=== PATIENT | female | born 1990 | race Caucasian/White ===

== ENCOUNTER 2022-12-17 14:30 | Outpatient (CLI) | payer BC, MEDICAID, SELFPAY | END 2022-12-17 14:31 | disposition home or self-care (01) | PROVIDERS: Visit Provider Nurse Practitioner Family | DX: R10.13 Epigastric pain (principal); M79.89 Other specified soft tissue disorders; R20.2 Paresthesia of skin | CPT/HCPCS: 80053; 82150; 82607; 83690; 84443; 85025 ==

== ENCOUNTER 2023-09-30 12:45 | Outpatient (CLI) | payer BC, SELFPAY ==
--- NOTE | 2023-09-30 13:00 | US_ITS ---
Patient: VU Lino [facility] Facility:?[facility] RIS Patient ID:?[id number] Site Patient ID:?[id number]. Site :?1990 Study:?US-OB Pelvis OB TV-09/30/2023 1:35:44 PM Ordering Physician:?KIMMIE THACKER CNP Final Report: OBSTETRICAL ULTRASOUND INDICATION: Ultrasound for dates and viability. LMP: 08/01/2023. NIRMALA by LMP: 05/07/2024. Gestational age: 8w 4d. Previous US: No. TECHNIQUE: Transvaginal pelvic ultrasound. FINDINGS: CRL: 1.0 cm, 7 weeks 1 day. NIRMALA: 05/17/2024. heart rate: 127 bpm. Gestational sac: 1.8 cm appears within normal limits. Yolk sac: 3.2 mm appears within normal limits. Right ovary: Within normal limits; 3.1 x 1.7 x 2.0 cm. Left ovary: Within normal limits; 3.8 x 2.6 x 2.3 cm IMPRESSION: 1. Single viable intrauterine . 2. Measurements are 10 days behind clinical dates. Fer Last M.D. Body/Diagnostic Radiologist [employer] [facility] [email or web address] MEGHAN/molina D& Transcribed: 4:47 p.m. SP/Dictated by: Fer Last MD @ 10/01/2023 3:27:00 PM Signed by:?Fer Last MD @10/02/2023 4:05:45 PM (Electronic Signature)
== END 2023-09-30 12:46 | disposition home or self-care (01) ==
LOC: US 12:46
PROVIDERS: PCP Nurse Practitioner Family; Visit Provider Registered Nurse
DX: Z34.91 Encounter for supervision of normal pregnancy, unspecified, first trimester (principal); Z3A.01 Less than 8 weeks gestation of pregnancy
CPT/HCPCS: 76817; 82565; 82570; 84156; 84450; 84460; 84520; 84550; 86703; 86706; 86803; 86850; 86900; 86901; 87086; 87340; 87491; 87591

== ENCOUNTER 2023-09-30 14:09 | Outpatient (CLI) | payer BC, SELFPAY ==
[2023-09-30 21:47] LABS: Chlamydia DNA Amplified* NOT DETECTED (No Detected); GC DNA Amplified* NOT DETECTED (No Detected)
== END 2023-09-30 14:10 | disposition home or self-care (01) ==
PROVIDERS: PCP Nurse Practitioner Family; Visit Provider Registered Nurse
DX: Z34.81 Encounter for supervision of other normal pregnancy, first trimester (principal)
CPT/HCPCS: 82565; 82570; 84156; 84450; 84460; 84520; 84550; 86592; 86703; 86704; 86706; 86762; 86787; 86803; 86850; 86900; 86901; 87086; 87340; 87491; 87591

== ENCOUNTER 2023-12-01 13:30 | Outpatient (CLI) | payer BC, SELFPAY | END 2023-12-01 13:31 | disposition home or self-care (01) | LOC: NFLDREF 12-03 05:43 | PROVIDERS: PCP Nurse Practitioner Family; Referring Provider Nurse Practitioner Family; Visit Provider Nurse Practitioner Family | DX: L65.9 Nonscarring hair loss, unspecified (principal) | CPT/HCPCS: 84443 ==

== ENCOUNTER 2023-12-08 07:43 | Outpatient (CLI) | payer BC, SELFPAY ==
--- OUTSIDE RECORDS SUMMARY | 2023-12-10 00:08 | XMS_ITS | Continuity of Care Document ---
Author Organization [facility] Address [address] [address] [place] [address] Phone Care Team Providers Care Supervisor Extruding Department Name Role Phone Justin Mcnally MD Unavailable Unavailable Procedures Procedure Date Init Inpt Cons New/est Mod-hi 2 Ugi Endo; Dx W/wo Collec Specm Subsqt Hosp-da E&m Minr Compl 2 Ugi Endo; W/endo Ultrasound Ex Ercp; W/endo Retro Remov Stone Ercp; W/sphincterotomy/papillo Advance Directives Directive Yes / No Effective Date File Name No Information Encounters Encounter Description Practice Location Reason(s) For Visit Diagnoses Date Provider Providers Copied on Encounter [facility], [address] [address], [place], [place], [id number], [place] tel:[phone] [facility] No Information 2 Dali Anderson. [address], [id number] , [place]. tel:[phone] Init Inpt Cons New/est Mod-hi [facility], [address] [address], [place], [place], [id number], [place] tel:[phone] [facility] No Information 2 Dali Anderson. [address] [facility], [address], [id number] , [place]. tel:[phone] Referring Provider: Kelsey Hargrove [facility], [address] [place] [address], [address]. tel:[phone] Subsqt Hosp- E&m Minr Compl [facility] [place], [address] [address], [place], [place], [id number], [place] [phone] [facility] No Information 2 Drake Villareal. [address] [facility], [facility] [address], [place], [place], [id number] , [place]. tel:[phone] Referring Provider: Dionna Juan NP P, [address] [facility] [address], [place], [address] . tel:[phone] [facility], [address] [address], [place], [place], [id number], [place] tel:[phone] [facility] No Information 2 Dali Anderson. [address] [facility], [facility] [address], [place], [place], [id number] , [place]. tel:[phone] Referring Provider: Hellen Pappas MD, [address] [facility] [address], [place], [address]. tel:[phone] Family History Family Member Type Diagnosis Age At Onset No Information Payers Payer name Insurance type Covered libertarian ID Authoriza tion(s) No Information Social History Type Description Quantity Date Captured Comments Sex Female Smoking Status No Information Chief Complaint And Reason For Visit No Information Reason For Referral Reason For Referral No Information History Of Present Illness Encounter Date Complaint History Of Prese nt Illness No Information Functional Status Date Functional Assessmen t No Information Instructions Date Instruction Additional Infor mation No Information Assessments Type Assessment Date No Information Patient Care Teams Name Effective Dates (start - stop) Status Members No Information
== END 2023-12-08 07:44 | disposition home or self-care (01) ==
LOC: NFLDREF 12-10 00:06
PROVIDERS: PCP Nurse Practitioner Family; Referring Provider Nurse Practitioner Family; Visit Provider Obstetrics & Gynecology
DX: O24.429 Gestational diabetes mellitus in childbirth, unspecified control (principal)
CPT/HCPCS: 82570; 82951; 82952; 84156

== ENCOUNTER 2024-01-15 13:49 | Outpatient (CLI) | payer BC, SELFPAY ==
--- NOTE | 2024-01-15 14:00 | CRLHL7_ITS ---
For Patients: As a result of the Century Cures Act, medical imaging exams and procedure reports are released immediately into your electronic medical record. You may view this report before your referring provider. If you have questions, please contact your health care provider. INDICATION: follow up level 2 missed anatomy COMPARISON: 09/30/2023 TECHNIQUE: Real time hammer scale imaging of the fetus was performed as well as color Doppler analysis of the umbilical vessels. FINDINGS: Sonographic imaging demonstrates a single living intrauterine gestation. Fetus demonstrates a regular cardiac rate of 147 beats per minute. Fetus has a vertex position. The placenta lies anteriorly without evidence of placenta previa. Placental edge 3.7 cm from the internal cervical os. Amniotic fluid volume appears normal. Single deepest vertical pocket: 4.3 cm. The cervix is closed and measures 3.4 cm in length. The composite ultrasound gestational age is calculated at 22 weeks 5 days with an estimated sonographic due date of 05/15/2024. The estimated weight is 559 grams which lies at the 75th %. The following biometric measurements were obtained: Biparietal diameter: 5.1 cm/21 weeks 2 days 10th% Head circumference: 20.3 cm/22 weeks 3 days 35th% Abdominal circumference: 18.6 cm/23 weeks 3 days 73rd% Femur length: 4.0 cm/23 weeks 0 days 60th% The HC/AC ratio measures: 1.09 range (1.05-1.22) Incomplete visualization of the aortic arch, tongue and palate. Normal stomach, cord insertion, urinary bladder, kidneys, diaphragm, profile, four-chamber heart and outflow tracts. Normal cerebellum, cisterna magna, nuchal fold, lateral ventricles, CSP, spine and choroid plexus. IMPRESSION: Normal missed anatomy although there is incomplete visualization of the arch, tongue and palate. Sonographic gestational age 22 weeks 5 days and sonographic due date of 05/15/2024. Good correlation with dates. Estimated weight 75th percentile. Abdominal circumference 73rd percentile. Dictated by Quentin Price MD @ 01/16/2024 12:19:45 PM (Electronically Signed)
== END 2024-01-15 13:50 | disposition home or self-care (01) ==
LOC: US 13:49
PROVIDERS: PCP Nurse Practitioner Family; Visit Provider Advanced Practice Midwife
DX: Z34.92 Encounter for supervision of normal pregnancy, unspecified, second trimester (principal); O35.AXX0 Maternal care for other (suspected) fetal abnormality and damage, fetal facial anomalies, not applicable or unspecified; Z3A.22 22 weeks gestation of pregnancy
CPT/HCPCS: 76816

== ENCOUNTER 2024-02-27 12:06 | Outpatient (CLI) | payer BC, SELFPAY ==
--- OUTSIDE RECORDS SUMMARY | 2024-02-27 12:09 | XMS_ITS | Encounter Summary ---
Author Organization [facility] Address [address] [place] [address] Care Team Providers Care Contact Center Team Lead Name Role Phone Unavailable Primary Care Provider Unavailabl e Reason for Visit * Reason Onset Date Comments MFM Triage 12/11/2023 Encounter Details Date Type Department Care Team (Late st Contact Info) Description 12/11/2023 Clinical Communication Department of Obstetrics and Gynecology in [place], [place] [address] [place] [address] Prescheduling, Provider MFM Triage Social History Tobacco Use Types Packs/Day Years Used Date Smoking Tobacco: Never Assessed [facility] Utilities Answer Date Recorded In the past 12 months has th e electric, gas, oil, or water company threatened to shut off services in your home? No 12/18/2023 Exercise Vital Sign Answer Date Recorde d On average, how many days pe r week do you engage in moderate to strenuous exercise (like a brisk walk)? 4 days 12/18/2023 On average, how many minutes do you engage in exercise at this level? 30 min 12/18/2023 Hunger Vital Sign Answer Date Recorded Within the past 12 months, y ou worried that your food would run out before you got the money to buy more. Never true 12/18/19 24 Within the past 12 months, t he food you bought just didn't last and you didn't have money to get more. Never true 12/18/2023 PRAPARE - Transportation Answer Date Re corded In the past 12 months, has l ack of transportation kept you from medical appointments or from getting medications? No 05/2023 In the past 12 months, has l ack of transportation kept you from meetings, work, or from getting things needed for daily living? No 12/18/2023 Nutrition Answer Date Recorded On average, how many serving s of fruits and vegetables do you eat per day (serving size is equal to 1 cup or approximately the size of a tennis ball)? 0-2 12/18/2023 Dental Answer Date Recorded Dental: Regular Dentist Yes 12/18/19 Employment Answer Date Recorded Employment status Employed and actively working without restrictions 12/18/2023 Housing Stability Answer Date Recorded What is your living situation today? I have a [facility] place to live 12/18/2023 Sex and Gender Information Value Date Recorded Sex Assigned at Female 12/18/2023 9:03 AM CDT Gender Identity Female 12/18/2023 9:03 AM CDT Sexual Orientation Straight 12/18/2023 9: 03 AM CDT documented as of this encounter Plan of Treatment Not on file documented as of this encounter Visit Diagnoses Not on filedocumented in this encounter
--- OUTSIDE RECORDS SUMMARY | 2024-02-27 12:09 | XMS_ITS | Encounter Summary ---
Author Organization [facility] Address [address] [place] [address] Care Team Providers Care Hand Stripper Name Role Phone Unavailable Primary Care Provider Unavailabl e Encounter Details Date Type Department Care Team (Late st Contact Info) Description 12/15/2023 Orders Only Department of Obstetrics and Gynecology in [place], [place] [address] [place] [address] Florinda Ewing, REmilyNEmily [address] [place] [address] Diabetes Mellitus Gestational (HCC) (Primary Dx); Hypertension Personal History Social History Tobacco Use Types Packs/Day Years Used Date Smoking Tobacco: Every Day Cigarettes 0.5 10.8 Started: 2013 Smokeless Tobacco: Never Alcohol Use Standard Drinks/Week Comments Not Currently 0 (1 standard drink = 0.6 oz pur e alcohol) [facility] Utilities Answer Date Recorded In the past 12 months has [facility] [employer], gas, oil, or water [employer] threatened to shut off services in your [...] your living situation today? I have a [facility] place to live 12/18/2023 Estimated Date of Delivery Comme nts Yes 05/17/2024 Based on Ultraso und Sex and Gender Information Value Date Recorded Sex Assigned at Female 12/18/2023 9:03 AM CDT Gender Identity Female 12/18/2023 9:03 AM CDT Sexual Orientation Straight 12/18/2023 9: 03 AM CDT documented as of this encounter Plan of Treatment Not on file documented as of this encounter Results * US OB Advanced Level Tafoya (12/24/2023 9:37 AM CDT) Anatomical Region Laterality Modality Body, Ultrasound OB RST LOS, Ultrasound ARZ LOS N/A Ultrasound Narrative 12/24/2023 10:18 AM CDT SHERINE PECK OB Exam, 12/24/2023 EXAM INFORMATION Patient Name: ??SHERINE PECK : ??1990 Age: ??33 yrs Sex: ??Female Ref Phys: ??SHITAL GREENE Exam Date: 12/24/2023 Procedure: US OB ADVANCED LEVEL TAFOYA Exam Site: [facility] OB #[id number] Plurality: 1 INDICATIONS FOR SONOGRAPHY adv level MFM consult for CHTN on meds controlled and GDM IMPRESSION Transabdominal ultrasound was performed. Anatomy Scan Tafoya . No abnormalities identified. However, the anatomy survey remains incomplete due to position and maternal body habitus. Recommend follow up ultrasound for completion of anatomy survey. Size equals dates. The Placenta is without evidence of previa with a placental causey occupying a relatively small area in the placenta and near the cord insertion. The cervix is long and closed. The amniotic fluid appears normal. Limited views of the adnexa without obvious abnormalities. MATERNAL MEASUREMENTS Cervix Length: ??59.2 mm MEASUREMENTS ??arcelia ??wks [+/-] (Range) % ?? BPD: 4.25 cm ?? 18w6d ??[+/-1.73] ??(3.80 - 4.98) 32% FL: ??2.87 cm ?? 18w6d ??[+/-1.80] ??(2.47 - 3.65) 26% HC: ??16.79 cm ?? 19w3d ??[+/-1.48] ??(14.81 - 18.73) 50% AC: ??14.54 cm ?? 19w6d ??[+/-2.06] ??(11.41 - 16.66) 64% HL: ??2.88 cm ?? 19w1d ? (2.36 - 3.36) 52% TCD: 2.06 cm ?? 20w3d ??[+/-1.80] ??(1.80 - 2.20) 72% NF: ??4.74 mm ? Cisterna Magna: 0.54 cm ? Lateral Ventricle: 0.8 cm ? RATIOS ??(Range) % ?? HC/AC: 1.15 ?(1.09 - 1.26) 37% ?? FL/BPD: 0.68 ? FL/AC: 0.20 ? LONG BONES SURVEY ??cm ??wks [+/-] (Range) % ?? Humerus: 2.88 cm ?? 19w1d ? (2.36 - 3.36) 52% Ulna: ?? 2.8 cm ? Radius: 2.53 cm ? Femur: 2.87 cm ?? 18w6d ??[+/-1.80] ??(2.47 - 3.65) 26% Tibia: 2.63 cm ? Fibula: 2.6 cm ? COMPUTATIONS GA: ?? 19w2d [+/-1.40] Method: ??NIRMALA NIRMALA: ??05/17/2024 Sono GA: ??19w0d [+/-1.40] Method: ?? BPD, HC, AC, FL OBSERVATIONS Amniotic Fluid Fluid Volume: ??Normal Placenta: ??Placenta is Anterior. ??There is no evidence of a placenta previa. Presentation: ?Variable Size: ?Normal for dates Growth: ??Within normal limits. FHR: ??158 bpm ANATOMY Normal: Sag and Trans Cervical spine, Sag and Trans Thoracic spine, Sag and Trans Lumbar spine, Sag and Trans Sacral spine, Cerebellum, Vermis, Cisterna magna, Choroid plexus, Nuchal thickness, CSP, Midline falx, Situs, RVOT, LVOT, Anterior abdominal wall, Abdominal cord insertion, Placental cord insert , 3 vessel cord, Kidneys (coronal and trans), Renal arteries, Bladder, Face, Upper lip/nose, Orbits/lens, Upper extremities, Lower extremities, Hands, Feet Not Seen: Cerebral ventricle, Palate, Maxilla, Mandible, Tongue, 4 chamber heart, Interventricular septum, 3VV, 3VT, Aortic arch, Ductal arch, SVC/IVC, Chest/Heart/lungs, Diaphragm, Stomach, Profile/Nasal Bone Preliminary Read by Rafael Villalobos on 12/24/2023 9:37:40 AM. Fish Processing Supervisor: ??Rafael Villalobos Thank You For This Referral Procedure Note Ramesh Velasco M.D. - 12/24/2023 SHERINE PECK OB Exam, 12/24/2023 EXAM INFORMATION Patient Name: SHERINE PECK : 1990 Age: 33 yrs Sex: Female Ref Phys: SHITAL GREENE Exam Date: 12/24/2023 Procedure: US OB ADVANCED LEVEL TAFOYA Exam Site: [facility] OB #[id number] Plurality: 1 INDICATIONS FOR SONOGRAPHY adv level [facility] consult for CHTN on meds controlled and GDM IMPRESSION Transabdominal ultrasound was performed. Anatomy Scan Tafoya . No abnormalities identified. However, the fetalanatomy survey remains incomplete due to position and maternal bodyhabitus. Recommend follow up ultrasound for completion of anatomy survey.Size equals dates. The Placenta is without evidence of previa with a placental causey occupying a relativelysmall area in the placenta and near the cord insertion. The cervix is longand closed. The amniotic fluid appears normal. Limited views of the adnexawithout obvious abnormalities. MATERNAL MEASUREMENTS Cervix Length: 59.2 mm MEASUREMENTS arcelia wks [+/-] (Range) % BPD: 4.25 cm 18w6d [+/-1.73] (3.80 - 4.98) 32% FL: 2.87 cm 18w6d [+/-1.80] (2.47 - 3.65) 26% HC: 16.79 cm 19w3d [+/-1.48] (14.81 - 18.73) 50% AC: 14.54 cm 19w6d [+/-2.06] (11.41 - 16.66) 64% HL: 2.88 cm 19w1d (2.36 - 3.36) 52% TCD: 2.06 cm 20w3d [+/-1.80] (1.80 - 2.20) 72% NF: 4.74 mm Cisterna Magna: 0.54 cm Lateral Ventricle: 0.8 cm RATIOS (Range) % HC/AC: 1.15 (1.09 - 1.26) 37% FL/BPD: 0.68 FL/AC: 0.20 LONG BONES SURVEY cm wks [+/-] (Range) % Humerus: 2.88 cm 19w1d (2.36 - 3.36) 52% Ulna: 2.8 cm Radius: 2.53 cm Femur: 2.87 cm 18w6d [+/-1.80] (2.47 - 3.65) 26% Tibia: 2.63 cm Fibula: 2.6 cm COMPUTATIONS GA: 19w2d [+/-1.40] Method: NIRMALA NIRMALA: 05/17/2024 Sono GA: 19w0d [+/-1.40] Method: BPD, HC, AC, FL OBSERVATIONS Amniotic Fluid Fluid Volume: Normal Placenta: Placenta is Anterior. There is no evidence of a placentaprevia. Presentation: Variable Size: Normal for dates Growth: Within normal limits. FHR: 158 bpm ANATOMY Normal: Sag and Trans Cervical spine, Sag and Trans Thoracic spine, Sagand Trans Lumbar spine, Sag and Trans Sacral spine, Cerebellum, Vermis,Cisterna magna, Choroid plexus, Nuchal thickness, CSP, Midline falx,Situs, RVOT, LVOT, Anterior abdominal wall, Abdominal cord insertion, Placental cord insert , 3 vessel cord,Kidneys (coronal and trans), Renal arteries, Bladder, Face, Upperlip/nose, Orbits/lens, Upper extremities, Lower extremities, Hands, Feet Not Seen: Cerebral ventricle, Palate, Maxilla, Mandible, Tongue, 4 chamberheart, Interventricular septum, 3VV, 3VT, Aortic arch, Ductal arch,SVC/IVC, Chest/Heart/lungs, Diaphragm, Stomach, Profile/Nasal Bone Preliminary Read by Rafael Villalobos on 12/24/2023 9:37:40 AM. Fish Processing Supervisor: Rafael Villalobos Thank You For This Referral Shital GURROLA OB US [facility] OCEDURES documented in this encounter Visit Diagnoses Diagnosis Diabetes Mellitus Gestational (HCC)- Primary Hypertension Personal History Diabetes Mellitus Gestational (HCC) Hypertension Personal History documented in this encounter
--- OUTSIDE RECORDS SUMMARY | 2024-02-27 12:09 | XMS_ITS | Referral Summary ---
Author Organization [facility] Address [address] [place] [address] Care Team Providers Care Youth Counselor Name Role Phone Unavailable Primary Care Provider Unavailabl e Source Comments Patient records contain information from all sites at [facility]. For routine questions regarding patient records, call [phone] during business hours, M-F 8:00 AM - 5:00 PM Central Time. Record requests for emergency care only can be directed to [phone] at any time.[facility] Encounters Date Type Department Care Team Description 12/29/2023 Clinical Communication Department of Obstetrics and Gynecology in [place], [place] [address] [place] [address] Diandra Franz M.D., Ph.D. Communication 12/24/2023 8:28 AM CDT - 12/24/2023 11:59 PM CDT Hospital Encounter Department of Obstetrics and Gynecology in [place], [place] [address] [place] [address] Shiatl Greene M.D. Diabetes Mellitus Gestational (HCC); Hypertension Personal History Discharge Disposition: Home or Self Care 12/24/2023 10:00 AM CDT Routine Department of Obstetrics and Gynecology in [place], [place] [address] [place] [address] Diandra Franz M.D., Ph.D. Preexisting Hypertension (HCC) (Primary Dx); PreDiabetes; Complication Obesity Body Mass Index 30 To 40 12/15/2023 Orders Only Department of Obstetrics and Gynecology in [place], [place] [address] [place] [phone] Florinda Ewing R.N. Diabetes Mellitus Gestational (HCC) (Primary Dx); Hypertension Personal History 12/11/2023 Clinical Communication Department of Obstetrics and Gynecology in [place], [place] [address] [place] [address] Prescheduling, Provider MFM Triage from Last 3 Months Allergies Active Allergy Reactions Criticality Noted Date Comments Amoxicillin-Pot Clavulanate Rash 11/17/19 15 Cefaclor Rash 11/16/2014 Medications Medication Sig Dispensed Refills Start Date End Date Status [id number]-FA 27 mg iron- 1 mg tablet Take 1 tablet by mouth daily. Active labetaloL 100 mg tablet Take 100 mg by mouth every 12 (twelve) hours. Active Active Problems Problem Noted Date Diagnosed Date Preexisting Hypertension 12/24/2023 PreDiabetes 12/24/2023 Complication Obesity Body Mass Index 30 To 40 Pr egnancy 12/24/2023 Estimated Date of Delivery Comme nts Yes 05/17/2024 Based on Ultraso und Immunizations Name Administration Dates Next Due MMRV 03/14/2005 Td (Adult), adsorbed 03/14/2005 LUIS FELIPE 03/14/2005 Social History Tobacco Use Types Packs/Day Years Used Date Smoking Tobacco: Every Day Cigarettes 0.5 10.8 Started: 2013 Smokeless Tobacco: Never Tobacco Cessation:Ready to Q uit: Not Asked; Counseling Given: Not Answered Alcohol Use Standard Drinks/Week Comments Not Currently 0 (1 standard drink = 0.6 oz pur e alcohol) [facility] Utilities Answer Date Recorded In the past 12 months has e [employer], gas, oil, or water [employer] threatened to shut off services in your [...] your living situation today? I have a [facility] place to live 12/18/2023 Estimated Date of Delivery Comme nts Yes 05/17/2024 Based on Ultraso und Sex and Gender Information Value Date Recorded Sex Assigned at Female 12/18/2023 9:03 AM CDT Gender Identity Female 12/18/2023 9:03 AM CDT Sexual Orientation Straight 12/18/2023 9: 03 AM CDT Last Filed Vital Signs Vital Sign Reading Time Taken Comments Blood Pressure 112/72 12/24/2023 9:31 AM CDT Pulse 77 12/24/2023 9:31 AM CDT Temperature - - Respiratory Rate - - Oxygen Saturation 99% 12/24/2023 9:31 AM CDT Inhaled Oxygen Concentration - - Weight 96.7 kg (213 lb 3 oz) 12/24/2023 9:31 AM CDT Height - - Body Mass Index - - Plan of Treatment Not on file Procedures Procedure Name Priority Date/Time Associated Diagnosis Comments US OB ADVANCED LEVEL TAFOYA RAD - Routine (most inpatients and all outpatients) 12/24/2023 9:37 AM CDT Diabetes Mellitus Gestational (HCC) Hypertension Personal History from Last 3 Months Results * US OB Advanced Level Tafoya (12/24/2023 9:37 AM CDT) Anatomical Region Laterality Modality Body, Ultrasound OB RST LOS, Ultrasound ARZ LOS N/A Ultrasound Narrative 12/24/2023 10:18 AM CDT SHERINE SALCIDO OB Exam, 12/24/2023 EXAM INFORMATION Patient Name: ??SHERINE SALCIDO : ??1990 Age: ??33 yrs Sex: ??Female Ref Phys: ??SHITAL GREENE Exam Date: 12/24/2023 Procedure: OB ADVANCED LEVEL TAFOYA Exam Site: [facility] OB #126 Plurality: 1 INDICATIONS FOR SONOGRAPHY adv level [facility] consult for CHTN on meds controlled and [...] by Rafael Villalobos on 12/24/2023 9:37:40 AM. Industrial Sociologist: ??Rafael Villalobos Thank You For This Referral Procedure Note Ramesh Velasco M.D. - 12/24/2023 SHERINE SALCIDO OB Exam, 12/24/2023 EXAM INFORMATION Patient Name: SHERINE SALCIDO : 1990 Age: 33 yrs Sex: Female Ref Phys: SHITAL GREENE Exam Date: 12/24/2023 Procedure: US OB ADVANCED LEVEL TAFOYA Exam Site: [facility] OB #126 Plurality: 1 INDICATIONS FOR SONOGRAPHY [...] by Rafael Villalobos on 12/24/2023 9:37:40 AM. Industrial Sociologist: Rafael Villalobos Thank You For This Referral Shital Greene M.D. IMG OB US CO OCEDURES from Last 3 Months
--- OUTSIDE RECORDS SUMMARY | 2024-02-27 12:09 | XMS_ITS ---
Author Organization [facility] Address [address] [place] [address] Care Team Providers Care Fur Feeder Name Role Phone Unavailable Unavailable Unavailable Surgery Details Not on file Complications Check Surgery Details section. Procedure Estimated Blood Loss Check Surgery Details section. Procedure Findings Check Surgery Details section. Procedure Specimens Taken Check Surgery Details section.
--- OUTSIDE RECORDS SUMMARY | 2024-02-27 12:09 | XMS_ITS | Encounter Summary ---
Author Organization [facility] Address [address] [place] [address] Care Team Providers Care Velocity Shooter Name Role Phone Unavailable Primary Care Provider Unavailabl e Encounter Details Date Type Department Care Team (Latest Contact Info) Description 12/24/2023 8:28 AM CDT - 12/24/2023 11:59 PM CDT Hospital Encounter Department of Obstetrics and Gynecology in [place], [place] [address] [place] [address] Shital Greene M.D. [address] [place] [address] Diabetes Mellitus Gestational (HCC); Hypertension Personal History Discharge Disposition: Home or Self Care Social History Tobacco Use Types Packs/Day Years Used Date Smoking Tobacco: Every Day Cigarettes 0.5 10.8 Started: 2013 Smokeless Tobacco: Never Alcohol Use Standard Drinks/Week Comments Not Currently 0 (1 standard drink = 0.6 oz pur e alcohol) [facility] Utilities Answer Date Recorded In the past 12 months has [employer], gas, oil, or water [employer] threatened to shut off services in your [...] your living situation today? I have a [facility] place to live 12/18/2023 Estimated Date of Delivery Comme nts Yes 05/17/2024 Based on Ultraso und Sex and Gender Information Value Date Recorded Sex Assigned at Female 12/18/2023 9:03 AM CDT Gender Identity Female 12/18/2023 9:03 AM CDT Sexual Orientation Straight 12/18/2023 9: 03 AM CDT documented as of this encounter Medications at Time of Discharge Medication Sig Dispensed Refills Start Date End Date labetaloL 100 mg tablet Take 100 mg by mouth every 12 (twelve) hours. tooliwb-Bo-ooir-FA 27 mg iron- 1 mg tablet Take 1 tablet by mouth daily. documented as of this encounter Plan of Treatment Not on file documented as of this encounter Procedures Procedure Name Priority Date/Time Associated Diagnosis Comments US OB ADVANCED LEVEL TAFOYA RAD - Routine (most inpatients and all outpatients) 12/24/2023 9:37 AM CDT Diabetes Mellitus Gestational (HCC) Hypertension Personal History documented in this encounter Results * US OB Advanced [...] Procedure: OB ADVANCED LEVEL TAFOYA Exam Site: [facility] OB #126 Plurality: 1 INDICATIONS FOR SONOGRAPHY adv level [facility] consult for CHTN on meds controlled [...] by Rafael Villalobos on 12/24/2023 9:37:40 AM. Closing Manager: ??Rafael Villalobos Thank You For This Referral Procedure Note Ramesh Velasco M.D. - 12/24/2023 SHERINE PECKN OB Exam, 12/24/2023 EXAM INFORMATION Patient Name: SHERINE PECK : 1990 Age: 33 yrs Sex: Female Ref Phys: SHITAL GREENE Exam Date: 12/24/2023 Procedure: US OB ADVANCED LEVEL TAFOYA Exam Site: [facility] OB #126 Plurality: 1 INDICATIONS FOR SONOGRAPHY [...] by Rafael Villalobos on 12/24/2023 9:37:40 AM. Closing Manager: Rafael Villalobos Thank You For This Referral Shital Greene M.D. IMTamara OB US AL OCEDURES documented in this encounter Visit Diagnoses Diagnosis Diabetes Mellitus Gestational (HCC) Hypertension Personal History documented in this encounter
--- OUTSIDE RECORDS SUMMARY | 2024-02-27 12:09 | XMS_ITS | Encounter Summary ---
Author Organization [facility] Address [address] [place] [address] Care Team Providers Care Housekeeper Supervisor Name Role Phone Unavailable Primary Care Provider Unavailabl e Reason for Visit * Appointment Request (Routine) - Authorized Specialty Diagnoses / Procedures Referred By Mary Anne newell Referred To Contact Maternal and Medicine Diagnoses Diabetes Mellitus Gestational (HCC) Hypertension Tobacco Use High Risk (HCC) Gestational Proteinuria Unspecified Trimester (HCC) Francisca Rowan M.D. [address] [place] [address] Referral ID Status Reason Start Date Expiration Date V isits Requested Visits Authorized [id number] Authorized 12/11/2023 12/10/2024 2 2 Encounter Details Date Type Department Care Team (Latest Contact Info) Description 12/24/2023 10:00 AM CDT Routine Department of Obstetrics and Gynecology in [place], [place] [address] [place] [address] Diandra Franz M.D., Ph.D. [address] [place] [address] Preexisting Hypertension (HCC) (Primary Dx); PreDiabetes; Complication Obesity Body Mass Index 30 To 40 Social History Tobacco Use Types Packs/Day Years Used Date Smoking Tobacco: Every Day Cigarettes 0.5 10.8 Started: 2013 Smokeless Tobacco: Never Alcohol Use Standard Drinks/Week Comments Not Currently 0 (1 standard drink = 0.6 oz pur e alcohol) [facility] Utilities Answer Date Recorded In the past 12 months has th e electric, gas, oil, or water [employer] threatened to shut off services in your [...] money to buy more. Never true 12/18/19 Within the past 12 months, t he [...] your living situation today? I have a [facility] place to live 12/18/2023 Estimated Date of Delivery Comme nts Yes 05/17/2024 Based on Ultraso und Sex and Gender Information Value Date Recorded Sex Assigned at Female 12/18/2023 9:03 AM CDT Gender Identity Female 12/18/2023 9:03 AM CDT Sexual Orientation Straight 12/18/2023 9: 03 AM CDT documented as of this encounter Last Filed Vital Signs Vital Sign Reading Time Taken Comments Blood Pressure 112/72 12/24/2023 9:31 AM CDT Pulse 77 12/24/2023 9:31 AM CDT Temperature - - Respiratory Rate - - Oxygen Saturation 99% 12/24/2023 9:31 AM CDT Inhaled Oxygen Concentration - - Weight 96.7 kg (213 lb 3 oz) 12/24/2023 9:31 AM CDT Height - - Body Mass Index - - documented in this encounter Consult Notes * Diandra Franz M.D., Ph.D. - 12/24/2023 10:00 AM CDT MATERNAL MEDICINE CONSULTATION SUBJECTIVE Sherine Salcido is a 33 y.o. at 19w2d who presents for MFM consultation secondary tohypertension and possible diabetes. Patient's last menstrual period was 08/01/2023. Estimated Date of Delivery: 05/17/24 by ultrasound at 7w1d gestational age. She is referred by Francisca Rowan MD. Sherine receives her care in [place]. She presents with her partner Jose. BRIEF HISTORY With her first , Sherine was diagnosed with gestational diabetes. She was managed with Metformin initially; however, this was discontinued when her glucose control improved. She was also diagnosed with gestational hypertension. This , her BP was mildly elevated early in (136/72, 134/72, 150/70). She was started on Labetalol 100 mg BID on 11/24/2023 after she had the 150/70. Creatinine on 09/30/2023 was 0.5 mg/dl. Her initial urine protein:creatinine ratio was 0.20 on 09/30/2023; 24-hour urine protein collection on 12/07/2023 was 331.5 mg. She is also currently being managed for possible gestational diabetes. Her HbA1c on 09/30/2023 was 5.7% (prediabetes). She also had an abnormal glucose tolerance test. She is currently checking her glucose levels 4x daily. She is not currently taking low-dose aspirin. She was under the impression that she did not need totake it since she was started on Labetalol. OBJECTIVE Vitals: 12/24/23 0931 BP: 112/72 Pulse: 77 SpO2: 99% Ultrasound Today: Anatomy Scan Man . No abnormalities identified. However, the anatomy [...] views of the adnexa without obvious abnormalities. Not Seen: Cerebral ventricle, Palate, Maxilla, Mandible, Tongue, 4 chamber heart, Interventricular septum, 3VV, 3VT, Aortic arch, Ductal arch, SVC/IVC, Chest/Heart/lungs, Diaphragm, Stomach, Profile/Nasal Bone ASSESSMENT / PLAN Today we reviewed the results from her anatomy scan (which is incomplete) and also discussed her blood pressure and blood glucose. Hypertension: She is currently on Labetalol 100 mg BID, which I would continue. Her goal BP is lessthan 140/90 and medications should be adjusted to maintain this goal. I did recommend that she holdher Labetalol dose if SBP is <110mmHg or if she is symptomatic. Her baseline 24-hour urine protein is elevated (331.5 mg). I would not recommend a Nephrology consultation at this time; I would focus on BP control. To diagnose superimposed preeclampsia if her BP increases as progresses,she would need to show a significant increase in her 24 hour urine protein from baseline. I did advise her to start the low-dose aspirin. It is more effective when started prior to 16 weeks; however, she is still in the window to start taking it. ? Diabetes: Per recent ACOG Clinical Practice Update: Early (prior to 24 weeks) screening for GDM is NO LONGER recommended. This is because early monitoring and treatment of GDM has not been shown to provide or maternal benefit. HbA1c Guidelines (when tested early in ): IF >= 6.5% - overt diabetes; manage accordingly IF 5.7-6.4%: Recommend Nutrition counseling and regular physical activity Screen for GDM at 24-28 weeks IF < 5.7%: Screen for GDM at 24-28 weeks (ACOG Clinical Practice Update: Screening for Gestational and Pregestational Diabetes in and . Obstetrics & Gynecology 144(1):p e20-e23, November 2023). With this new recommendation, she could discontinue checking her glucose levels frequently at this time. She should be screened around 24 weeks for GDM. In her situation, I told her she may just wantto consider doing a 3-hour without the 1 hour since she will likely be diagnosed with GDM. I also did inform her of her future risk for developing type 2 diabetes and cardiovascular issues. Recommendations: Blood Pressure: START aspirin 81 mg daily now and take until delivery. Continue to treat as chronic hypertensive Continue Labetalol 100 mg BID GOAL BP: <140/90. If BP is persistently over 140/90, please increase antihypertensive medicationdose. Consider holding dose if SBP is < 110 mmHg. Warning signs: Present for evaluation if BP is >160/110. ? Diabetes: Encouraged daily physical activity and continued dietary modifications Can cut down on glucose checks at this gestational age Screen around 24 weeks: Consider directly doing 3-hour GTT (since she likely will meet criteria for GDM) IF GDM requires medication, insulin is first-line Surveillance: Anatomy scan - incomplete: She would prefer to do ultrasounds locally to complete the anatomy. Return to [facility] as needed. Growth ultrasounds: Perform every 4 weeks starting around 24 weeks testing (BPP and/or NST): Weekly NST or BPP starting at 32 weeks Delivery: Timing will be determined as her progresses, but recommendations are between 37-39 weeks at the latest, possibly earlier. BP controlled on medications 37-0/7 to 39-6/7 weeks (recommend earlier end of range) BP difficult to control 36-0/7 to 37-6/7 weeks Patient was seen with Florinda Ewing RN. Approximately 30 minutes were spent in the care of the patient. Consult faxed to [facility]: [phone] Diandra Franz M.D., Ph.D. Maternal- Medicine documented in this encounter Plan of Treatment Not on file documented as of this encounter Visit Diagnoses Diagnosis Preexisting Hypertension (HCC)- Primary PreDiabetes Complication Obesity Body Mass Index 30 To 40 documented in this encounter
--- OUTSIDE RECORDS SUMMARY | 2024-02-27 12:09 | XMS_ITS | Encounter Summary ---
Author Organization [facility] Address [address] [place] [address] Care Team Providers Care Head Chef Name Role Phone Unavailable Primary Care Provider Unavailabl e Reason for Visit * Reason Onset Date Comments Communication 12/29/2023 Encounter Details Date Type Department Care Team (Late st Contact Info) Description 12/29/2023 Clinical Communication Department of Obstetrics and Gynecology in [place], [place] [address] [place] [phone] Diandra Franz M.D., Ph.D. [address] [place] [phone] Communication Social History Tobacco Use Types Packs/Day Years Used Date Smoking Tobacco: Every Day Cigarettes 0.5 10.8 Started: 2013 Smokeless Tobacco: Never Alcohol Use Standard Drinks/Week Comments Not Currently 0 (1 standard drink = 0.6 oz pur e alcohol) [facility] Utilities Answer Date Recorded In the past 12 months has [employer], gas, oil, or water [employer] threatened to shut off services in your [...] your living situation today? I have a [facility] place to live 12/18/2023 Estimated Date [...]
--- OUTSIDE RECORDS SUMMARY | 2024-02-27 12:09 | XMS_ITS | Clinical Summary ---
Author Organization [facility] Address [address] [place] [address] Care Team Providers Care Manager Operational Name Role Phone Unavailable Primary Care Provider Unavailabl e Source Comments Patient records contain information from all sites at [facility]. For routine questions regarding patient records, call [phone] during business hours, M-F 8:00 AM - 5:00 PM Central Time. Record requests for emergency care only can be directed to [phone] at any time.[facility] Allergies Active Allergy Reactions Criticality Noted Date Comments Amoxicillin-Pot Clavulanate Rash 11/17/19 15 Cefaclor Rash 11/16/2014 Medications Medication Sig Dispensed Refills Start Date End Date Status cqbepjs-Kr-rmiz-FA 27 mg iron- 1 mg tablet Take 1 tablet by mouth daily. Active labetaloL 100 mg tablet Take 100 mg by mouth every 12 (twelve) hours. Active Active Problems Problem Noted Date Diagnosed Date Preexisting Hypertension 12/24/2023 PreDiabetes 12/24/2023 Complication Obesity Body Mass Index 30 To 40 Pr egnancy 12/24/2023 Estimated Date of Delivery Comme nts Yes 05/17/2024 Based on Ultraso und Encounters Date Type Department Care Team Description 12/29/2023 Clinical Communication Department of Obstetrics and Gynecology in [place], [place] [address] [place] [address] Diandra Franz M.D., Ph.D. Communication 12/24/2023 10:00 AM CDT Routine Department of Obstetrics and Gynecology in [place], [place] [address] [place] [address] Diandra Franz M.D., Ph.D. Preexisting Hypertension (HCC) (Primary Dx); PreDiabetes; Complication Obesity Body Mass Index 30 To 40 12/24/2023 8:28 AM CDT - 12/24/2023 11:59 PM CDT Hospital Encounter Department of Obstetrics and Gynecology in [place], [place] [address] [place] [address] Shital Greene M.D. Diabetes Mellitus Gestational (HCC); Hypertension Personal History Discharge Disposition: Home or Self Care 12/15/2023 Orders Only Department of Obstetrics and Gynecology in [place], [place] [address] [place] [address] Florinda Ewing R.N. Diabetes Mellitus Gestational (HCC) (Primary Dx); Hypertension Personal History 12/11/2023 Clinical Communication Department of Obstetrics and Gynecology in [place], [place] [address] [place] [address] Prescheduling, Provider MFM Triage from Last 3 Months Immunizations Name Administration Dates Next Due MMRV 03/14/2005 Td (Adult), adsorbed 03/14/2005 LUIS FELIPE 03/14/2005 Family History Medical History Relation Name Comments Mental illness Brother No Known Problems Daughter Cancer Father Lung Thyroid disease Father Ulcer disease Father No Known Problems Maternal Grandfather No Known Problems Mother COPD Paternal Grandfather COPD Paternal Grandmother Cancer Paternal Grandmother Lung Gastrointestinal and digestive disorder Sister Relation Name Status Comments Brother Alive Daughter Alive Father Alive Maternal Grandfather Alive Maternal Grandmother Mother Alive Paternal Grandfather Paternal Grandmother Sister Alive Social History Tobacco Use Types Packs/Day Years Used Date Smoking Tobacco: Every Day Cigarettes 0.5 10.8 Started: 2013 Smokeless Tobacco: Never Tobacco Cessation:Ready to Q uit: Not Asked; Counseling Given: Not Answered Alcohol Use Standard Drinks/Week Comments Not Currently 0 (1 standard drink = 0.6 oz pur e alcohol) [facility] Utilities Answer Date Recorded In the past 12 months has th e [employer], gas, oil, or water [employer] threatened to shut off services in your [...] your living situation today? I have a [facility] place to live 12/18/2023 Estimated Date [...] Mass Index - - Plan of Treatment Health Maintenance Due Date Last Done Comments HIV Screening 1990 Hepatitis C Screening 1990 Tobacco Cessation counseling 1992 Pneumococcal vaccine (0-64 years) (1 of 2 - PCV) 1998 Fasting Glucose for Diabetes Screening 05/26/2022 05/26/2021, 05/25/2021, 05/23/2021, Additional history exists Depression Screening (Annual PHQ-2) 05/19/2023 COVID-19 Vaccine (1 - 2023-25 season) 2024 Influenza Vaccine (#1) 2024 RSV vaccine - (32-36 weeks) or 60+ years (1 - Risk 1-dose series) 03/22/2024 Office Visit for Blood Pressure Check / Re-check 12/23/2024 12/24/2023 DTaP,Tdap,and Td Vaccines (7 - Td or Tdap) 01/23/2025 01/23/2015, 03/14/2005, 09/06/1997, Additional history exists Cervical Cancer Screening 09/29/2026 09/30/2023 Hepatitis B Vaccines Completed 08/31/1993, 06/19/1993, 1992 HPV Vaccines Aged Out No longer eligi ble based on patient's age to complete this topic Procedures Procedure Name Priority Date/Time Associated Diagnosis [...] US OB ADVANCED LEVEL TAFOYA Exam Site: [facility] OB #126 Plurality: 1 INDICATIONS FOR [...] by Rafael Villalobos on 12/24/2023 9:37:40 AM. Cannery Tender Engineer: ??Rafael Villalobos Thank You For This Referral Procedure Note Ramesh Velasco M.D. - 12/24/2023 SHERINE SALCIDO OB Exam, 12/24/2023 EXAM INFORMATION Patient Name: SHERINE SALCIDO : 1990 Age: 33 yrs Sex: Female Ref Phys: SHITAL GREENE Exam Date: 12/24/2023 Procedure: US OB ADVANCED LEVEL TAFOYA Exam Site: [facility] OB #126 Plurality: 1 INDICATIONS FOR SONOGRAPHY adv level [facility] consult for CHTN on meds controlled [...] by Rafael Villalobos on 12/24/2023 9:37:40 AM. Cannery Tender Engineer: Rafael Villalobos Thank You For This Referral Shital Mary Ann Greene M.D. IMG OB US PA OCEDURES from Last 3 Months
--- NOTE | 2024-02-27 12:15 | CRLHL7_ITS ---
For Patients: As a result of the Century Cures Act, medical imaging exams and procedure reports are released immediately into your electronic medical record. You may view this report before your referring provider. If you have questions, please contact your health care provider. INDICATION: Third trimester scan, evaluate growth. COMPARISON: 01/15/2024 TECHNIQUE: Real time hammer scale imaging of the fetus was performed. FINDINGS: Sonographic imaging demonstrates a single living intrauterine gestation. Fetus demonstrates a regular cardiac rate of 148 beats per minute. Fetus has a vertex position. The placenta lies anteriorly. Amniotic fluid volume appears normal and there is a single deepest vertical pocket: 6.8 cm. The estimated weight is 1359gm which lies at the 63rd %. On the prior OB ultrasound exam dated 01/15/2024 the estimated weight was at the 75th%. BPD 36th percentile HC 66th percentile. AC 82nd percentile. FL is 21st percentile. The HC/AC ratio measures 1.07 range (0.99-1.21). IMPRESSION: Sonographic gestational age 29 weeks 1 day and sonographic due date 05/13/2024. Good correlation with dates. Estimated weight 63rd percentile. Abdominal circumference 82nd percentile. Dictated by Quentin Price MD @ 02/27/2024 1:21:26 PM (Electronically Signed)
== END 2024-02-27 12:07 | disposition home or self-care (01) ==
LOC: US 12:07
PROVIDERS: PCP Nurse Practitioner Family; Visit Provider Obstetrics & Gynecology
DX: Z34.93 Encounter for supervision of normal pregnancy, unspecified, third trimester (principal); Z3A.29 29 weeks gestation of pregnancy
CPT/HCPCS: 76816; 86592; 86850; J2791

== ENCOUNTER 2024-03-25 11:22 | Outpatient (CLI) | payer BC, SELFPAY ==
--- OUTSIDE RECORDS SUMMARY | 2024-03-25 11:25 | XMS_ITS | Clinical Summary ---
Author Organization [facility] Address [address] [place] [address] Care Team Providers Care Stock Car Driver Name Role Phone Unavailable Primary Care Provider Unavailabl e Source Comments Patient records contain information from all sites at [facility]. For routine questions regarding patient records, call [phone] during business hours, M-F 8:00 AM - 5:00 PM Central Time. Record requests for emergency care only can be directed to [phone] at any time.[facility] Allergies Active Allergy Reactions Criticality Noted Date Comments Amoxicillin-Pot Clavulanate Rash 11/17/19 15 Cefaclor Rash 11/16/2014 Medications rghetel-Kx-rpur- FA 27 mg iron- 1 mg tablet Take [...] Communication Department of Obstetrics and Gynecology in [place], [place] [address] [place] [address] Diandra Franz M.D., Ph.D. Communication 12/24/2023 10:00 AM CDT Routine Department of Obstetrics and Gynecology in [place], [place] [address] [place] [address] Diandra Franz M.D., Ph.D. Preexisting Hypertension (HCC) (Primary Dx); PreDiabetes; Complication Obesity Body Mass Index 30 To 40 12/24/2023 8:28 AM CDT - 12/24/2023 11:59 PM CDT Hospital Encounter Department of Obstetrics and Gynecology in [place], [place] [address] [place] [address] Shital Greene M.D. Diabetes Mellitus Gestational (HCC); Hypertension Personal History Discharge Disposition: Home or Self Care from Last 3 Months Immunizations Name Administration [...] drink = 0.6 oz pur e alcohol) [facility] Utilities Answer Date Recorded In the past 12 months has [employer], [employer], oil, or water [employer] threatened to shut off services in your [...] your living situation today? I have a [facility] place to live 12/18/2023 Estimated Date of Delivery Comme nts Yes 05/17/2024 Based on Ultraso und Sex and Gender Information Value Date Recorded Sex Assigned at Female 12/18/2023 9:03 AM CDT Legal Sex Female 10:53 PM WIRE SAW OPERATOR Gender Identity Female 12/18/2023 9:03 AM CDT [...] Depression Screening (Annual PHQ-2) 05/19/2023 COVID-19 Vaccine ( season) 2024 Influenza Vaccine (#1) 2024 RSV vaccine - (32-36 weeks) or 60+ years (1 - Risk 1-dose series) 03/22/2024 Office Visit for Blood Pressure Check / Re-check 12/23/2024 12/24/2023 DTaP,Tdap,and Td Vaccines (7 - Td or Tdap) 01/23/2025 01/23/2015, 03/14/2005, 09/06/1997, Additional history exists Cervical/Vaginal Cancer Screening 09/29/2026 09/30/2023 Hepatitis B Vaccines Completed 08/31/1993, 06/19/1993, 1992 IPV Vaccines Completed 09/06/1997, 08/17, 06/19/1993, Additional history exists HPV Vaccines Aged Out No longer eligi [...] N/A Ultrasound Narrative 12/24/2023 10:18 AM CDT SHERIEN SALCIDO OB Exam, 12/24/2023 EXAM INFORMATION Patient Name: ??SHERINE SALCIDO : ??1990 Age: ??33 yrs Sex: ??Female Ref Phys: ??SHITAL GREEEN Exam Date: 12/24/2023 Procedure: US OB ADVANCED LEVEL TAFOYA Exam Site: [facility] OB #[id number] Plurality: 1 INDICATIONS FOR SONOGRAPHY [facility] level [facility] consult for CHTN on [...] by Rafael Villalobos on 12/24/2023 9:37:40 AM. Dicer Machine Operator: ??Rafael Villalobos Thank You For This Referral Procedure Note Ramesh Velasco M.D. - 12/24/2023 SHERINE SALCIDO OB Exam, 12/24/2023 EXAM INFORMATION Patient Name: SHERINE SALCIDO : 1990 Age: 33 yrs Sex: Female Ref Phys: SHITAL GREENE Exam Date: 12/24/2023 Procedure: US OB ADVANCED LEVEL TAFOYA Exam Site: [facility] OB #[id number] Plurality: 1 INDICATIONS FOR SONOGRAPHY adv level [facility] consult for CHTN on [...] by Rafael Villalobos on 12/24/2023 9:37:40 AM. Dicer Machine Operator: Rafael Villalobos Thank You For This Referral us Shital Greene M.D. IMG OB US PROCEDURES Final Result from Last 3 Months Insurance [facility]
--- OUTSIDE RECORDS SUMMARY | 2024-03-25 11:25 | XMS_ITS | Encounter Summary ---
Author Organization [facility] Address [address] [place] [address] Care Team Providers Care Channeler Outsole Name Role Phone Unavailable Primary Care Provider Unavailabl e Encounter Details Date Type Department Care Team (Late st Contact Info) Description 12/15/2023 Orders Only Department of Obstetrics and Gynecology in [place], [place] [address] [place] [address] Florinda Ewing, REmilyNEmily [address] [place] [address] Diabetes Mellitus Gestational (HCC) (Primary Dx); Hypertension Personal History Social History Tobacco Use Types Packs/Day Years Used Date Smoking Tobacco: Every Day Cigarettes 0.5 10.8 Started: 2013 Smokeless Tobacco: Never Alcohol Use Standard Drinks/Week Comments Not Currently 0 (1 standard drink = 0.6 oz pur e alcohol) [facility] Utilities Answer Date Recorded In the past 12 months has [facility] [employer], gas, oil, or water [employer] threatened to shut off services in your [...] your living situation today? 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 Public Health: ??Rafael Villalobos Thank You For This Referral Procedure Note Ramesh Velasco M.D. - 12/24/2023 SHERINE PECK OB Exam, 12/24/2023 EXAM INFORMATION Patient Name: SHERINE PECK : 1990 Age: 33 yrs Sex: Female Ref Phys: SHITAL GREENE Exam Date: 12/24/2023 Procedure: US OB ADVANCED LEVEL TAFOYA Exam Site: [facility] OB #126 Plurality: 1 INDICATIONS FOR SONOGRAPHY adv level [facility] consult for CHTN on meds controlled [...] by Rafael Villalobos on 12/24/2023 9:37:40 AM. Public Health: Rafael Villalobos Thank You For This Referral us Shital Greene M.D. IMG OB US PROCEDURES Final Result documented in this encounter Visit Diagnoses Diagnosis Diabetes Mellitus Gestational (HCC)- Primary Hypertension Personal History Diabetes Mellitus Gestational (HCC) Hypertension Personal History documented in this encounter
--- OUTSIDE RECORDS SUMMARY | 2024-03-25 11:25 | XMS_ITS | Encounter Summary ---
Author Organization [facility] Address [address] [place] [address] Care Team Providers Care Insulation Worker Name Role Phone Unavailable Primary Care Provider Unavailabl e Reason for Visit * Appointment Request (Routine) - Authorized Specialty Diagnoses / Procedures Referred By Mary Anne newell Referred To Contact Maternal and Medicine Diagnoses Diabetes Mellitus Gestational (HCC) Hypertension Tobacco Use High Risk (HCC) Gestational Proteinuria Unspecified Trimester (HCC) Francisca Rowan M.D. [address] [place] [address] Phone: tel: fax: Referral ID Status Reason Start Date Expiration Date V isits Requested Visits Authorized [id number] Authorized 12/11/2023 12/10/2024 2 2 Encounter Details Date Type Department Care Team (Latest Contact Info) Description 12/24/2023 10:00 AM CDT Routine Department of Obstetrics and Gynecology in [place], [place] [address] [place] [address] Diandra Franz M.D., Ph.D. [address] [place] [address] Preexisting Hypertension (HCC) (Primary Dx); PreDiabetes; Complication Obesity Body Mass Index 30 To 40 Social History Tobacco Use Types Packs/Day Years Used Date Smoking Tobacco: Every Day Cigarettes 0.5 10.8 Started: 2013 Smokeless Tobacco: Never Alcohol Use Standard Drinks/Week Comments Not Currently 0 (1 standard drink = 0.6 oz pur e alcohol) [facility] Utilities Answer Date Recorded In the past 12 months has th e [employer], gas, oil, or water [employer] threatened to shut off services in your [...] AM CDT Legal Sex Female 10:53 PM 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 Sherine receives her care in [place]. She presents with her partner Jose. BRIEF [...] locally to complete the anatomy. Return to [place] as needed. Growth ultrasounds: Perform every 4 [...] care of the patient. Consult faxed to [place]: [phone] Diandra Franz M.D., Ph.D. Maternal- Medicine documented in this encounter Plan of Treatment Not on file documented as of this encounter Visit Diagnoses Diagnosis Preexisting Hypertension (HCC)- Primary PreDiabetes Complication Obesity Body Mass Index 30 To 40 documented in this encounter
--- OUTSIDE RECORDS SUMMARY | 2024-03-25 11:25 | XMS_ITS ---
Author Organization [facility] Address [address] [place] [address] Care Team Providers Care Office Specialist Name Role Phone Unavailable Unavailable Unavailable Surgery Details Not on file Complications Check Surgery Details section. Procedure Estimated Blood Loss Check Surgery Details section. Procedure Findings Check Surgery Details section. Procedure Specimens Taken Check Surgery Details section.
--- OUTSIDE RECORDS SUMMARY | 2024-03-25 11:25 | XMS_ITS | Encounter Summary ---
Author Organization [facility] Address [address] [place] [address] Care Team Providers Care Boilermaker Fitter Name Role Phone Unavailable Primary Care Provider Unavailabl e Reason for Visit * Reason Onset Date Comments Communication 12/29/2023 Encounter Details Date Type Department Care Team (Late st Contact Info) Description 12/29/2023 Clinical Communication Department of Obstetrics and Gynecology in [place], [place] [address] [place] [phone] Diandra Franz M.D., Ph.D. [address] [place] [phone] Communication Social History Tobacco Use Types Packs/Day Years Used Date Smoking Tobacco: Every Day Cigarettes 0.5 10.8 Started: 2013 Smokeless Tobacco: Never Alcohol Use Standard Drinks/Week Comments Not Currently 0 (1 standard drink = 0.6 oz pur e alcohol) [facility] Utilities Answer Date Recorded In the past 12 months has [employer], gas, oil, or water [employer] threatened to shut off services in your [...] your living situation today? 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
--- OUTSIDE RECORDS SUMMARY | 2024-03-25 11:25 | XMS_ITS | Referral Summary ---
Author Organization [facility] Address [address] [place] [address] Care Team Providers Care Kindergarten Prep Teacher Name Role Phone Unavailable Primary Care Provider Unavailabl e Source Comments Patient records contain information from all sites at [facility]. For routine questions regarding patient records, call [phone] during business hours, M-F 8:00 AM - 5:00 PM Central Time. Record requests for emergency care only can be directed to [phone] at any time.[facility] Encounters Date Type Department Care Team Description 12/29/2023 Clinical Communication Department of Obstetrics and Gynecology in [place], [place] [address] [place] [address] Diandra Franz M.D., Ph.D. Communication 12/24/2023 8:28 AM CDT - 12/24/2023 11:59 PM CDT Hospital Encounter Department of Obstetrics and Gynecology in [place], [place] [address] [place] [address] Shital Greene M.D. Diabetes Mellitus Gestational (HCC); Hypertension Personal History Discharge Disposition: Home or Self Care 12/24/2023 10:00 AM CDT Routine Department of Obstetrics and Gynecology in [place], [place] [address] [place] [address] Diandra Franz M.D., Ph.D. Preexisting Hypertension (HCC) (Primary Dx); PreDiabetes; Complication Obesity Body Mass Index 30 To 40 from Last 3 Months Allergies Active Allergy Reactions Criticality Noted Date Comments Amoxicillin-Pot Clavulanate Rash 11/17/19 15 Cefaclor Rash 11/16/2014 Medications [id number]-Ag-ccmy- FA 27 mg iron- 1 mg tablet [...] = 0.6 oz pur e alcohol) [facility] Utilities Answer Date Recorded In the past 12 months has th e [employer], [employer], oil, or water [employer] threatened to shut off services in your [...] Date Recorded Dental: Regular Dentist Yes 12/18/19 24 Employment Answer Date Recorded Employment status Employed and actively working without restrictions 12/18/2023 Housing Stability Answer Date Recorded What is your living situation today? 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 Marker Delivery: ??Rafael Villalobos Thank You For This Referral Procedure Note Ramesh Velasco M.D. - 12/24/2023 SHERINE SALCIDO OB Exam, 12/24/2023 EXAM INFORMATION Patient Name: SHERINE SALCIDO : 1990 Age: 33 yrs Sex: Female Ref Phys: SHITAL GREENE Exam Date: 12/24/2023 Procedure: OB ADVANCED LEVEL TAFOYA Exam Site: [facility] OB #126 Plurality: 1 INDICATIONS FOR SONOGRAPHY adv level [facility] consult for CHTN on meds controlled [...] by Rafael Villalobos on 12/24/2023 9:37:40 AM. Marker Delivery: Rafael Villalobos Thank You For This Referral us Shital Greene M.D. IMG OB US PROCEDURES Final Result from Last 3 Months Insurance [facility]
--- OUTSIDE RECORDS SUMMARY | 2024-03-25 11:25 | XMS_ITS | Encounter Summary ---
Author Organization [facility] Address [address] [place] [address] Care Team Providers Care Green Building Energy Engineer Name Role Phone Unavailable Primary Care Provider Unavailabl e Encounter Details Date Type Department Care Team (Latest Contact Info) Description 12/24/2023 8:28 AM CDT - 12/24/2023 11:59 PM CDT Hospital Encounter Department of Obstetrics and Gynecology in [place], [place] [address] [place] [address] Shital Greene M.D. [address] [place] [address] Diabetes Mellitus Gestational (HCC); Hypertension Personal History Discharge Disposition: Home or Self Care Social History Tobacco Use Types Packs/Day Years Used Date Smoking Tobacco: Every Day Cigarettes 0.5 10.8 Started: 2013 Smokeless Tobacco: Never Alcohol Use Standard Drinks/Week Comments Not Currently 0 (1 standard drink = 0.6 oz pur e alcohol) [facility] Utilities Answer Date Recorded In the past 12 months has [employer], gas, oil, or water [employer] threatened to shut off services in your [...] your living situation today? 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 bhjvshd-Dx-jrsh-F A 27 mg iron- 1 mg tablet Take [...] Procedure: OB ADVANCED LEVEL TAFOYA Exam Site: [facility] OB #126 Plurality: 1 INDICATIONS FOR [...] by Rafael Villalobos on 12/24/2023 9:37:40 AM. Hand Dry Cleaner: ??Rafael Villalobos Thank You For This Referral Procedure Note Ramesh Velasco M.D. - 12/24/2023 SHERINE PECK OB Exam, 12/24/2023 EXAM INFORMATION Patient Name: SHERINE PECK : 1990 Age: 33 yrs Sex: Female Ref Phys: SHITAL GREENE Exam Date: 12/24/2023 Procedure: US OB ADVANCED LEVEL TAFOYA Exam Site: [facility] OB #126 Plurality: 1 INDICATIONS FOR [...] by Rafael Villalobos on 12/24/2023 9:37:40 AM. Hand Dry Cleaner: Rafael Villalobos Thank You For This Referral us Shital Greene M.D. IMG OB US PROCEDURES Final Result documented in this encounter Visit Diagnoses Diagnosis Diabetes Mellitus Gestational (HCC) Hypertension Personal History documented in this encounter
--- OUTSIDE RECORDS SUMMARY | 2024-03-25 11:25 | XMS_ITS | Encounter Summary ---
Author Organization [facility] Address [address] [place] [address] Care Team Providers Care Master Dyer Name Role Phone Unavailable Primary Care Provider Unavailabl e Reason for Visit * Reason Onset Date Comments MFM Triage 12/11/2023 Encounter Details Date Type Department Care Team (Late st Contact Info) Description 12/11/2023 Clinical Communication Department of Obstetrics and Gynecology in [place], [place] [address] [place] [address] Prescheduling, Provider MFM Triage Social History Tobacco Use Types Packs/Day Years Used Date Smoking Tobacco: Never Assessed [facility] Utilities Answer Date Recorded In the [...] your living situation today? I have a [facility] place to live 12/18/2023 Comments Unknown Sex and Gender Information Value Date Recorded Sex Assigned at Female 12/18/2023 9:03 AM CDT Legal Sex Female 10:[address] SUPERVISOR OF ENGINES Gender Identity Female 12/18/2023 9:03 AM CDT Sexual Orientation Straight 12/18/2023 9: 03 AM CDT documented as of this encounter Plan of Treatment Not on file documented as of this encounter Visit Diagnoses Not on filedocumented in this encounter
--- NOTE | 2024-03-25 11:30 | CRLHL7_ITS ---
For Patients: As a result of the Century Cures Act, medical imaging exams and procedure reports are released immediately into your electronic medical record. You may view this report before your referring provider. If you have questions, please contact your health care provider. INDICATION: GDM TECHNIQUE: Real time hammer scale imaging of the fetus was performed. COMPARISON: 02/27/2024 FINDINGS: Sonographic imaging demonstrates a single living intrauterine gestation. Fetus demonstrates a regular cardiac rate of 141 beats per minute. Fetus has a vertex position. The placenta lies anteriorly. Amniotic fluid volume appears normal and there is a single deepest pocket of 6.9 cm. The estimated weight is 2223gm which lies at the 76th %. On the prior OB ultrasound dated 02/27/2024 the estimated weight was at the 63rd percentile. BPD 70th percentile. HC 97th percentile. AC 91st percentile. FL 14th percentile. The fetus was active and demonstrated normal breathing movements. There was normal flexion and extension of the trunk and extremities. IMPRESSION: Normal biophysical profile score 8/8. Sonographic gestational age 33 weeks 6 days and a sonographic due date of 05/17/2024. Sonographic age 10 days ahead of the clinical age. Estimated weight 76th percentile. Abdominal circumference 91st percentile. Dictated by Quentin Price MD @ 03/26/2024 10:05:47 AM (Electronically Signed)
== END 2024-03-25 11:23 | disposition home or self-care (01) ==
LOC: US 11:22
PROVIDERS: PCP Nurse Practitioner Family; Visit Provider Physician Assistant
DX: O24.419 Gestational diabetes mellitus in pregnancy, unspecified control (principal); Z3A.33 33 weeks gestation of pregnancy
CPT/HCPCS: 76816; 76819

== ENCOUNTER 2024-04-01 12:48 | Outpatient (CLI) | payer BC, SELFPAY ==
--- OUTSIDE RECORDS SUMMARY | 2024-04-01 12:51 | XMS_ITS ---
Author Organization [facility] Address [address] [place] [address] Care Team Providers Care Regional Recruiter Name Role Phone Unavailable Unavailable Unavailable Surgery Details Not on file Complications Check Surgery Details section. Procedure Estimated Blood Loss Check Surgery Details section. Procedure Findings Check Surgery Details section. Procedure Specimens Taken Check Surgery Details section.
--- NOTE | 2024-04-01 13:00 | CRLHL7_ITS ---
For Patients: As a result of the Century Cures Act, medical imaging exams and procedure reports are released immediately into your electronic medical record. You may view this report before your referring provider. If you have questions, please contact your health care provider. INDICATION: Gestational diabetes TECHNIQUE: Ultrasound OB pelvis transabdominal. Real-time hammer-scale imaging of the fetus was performed without stress testing. COMPARISON: None. FINDINGS: heart rate: Regular, 141 bpm. position: Cephalic. Amniotic fluid volume single deepest pocket 8.6 cm, with FIDENCIO of 19.4 centimeters 2/2. Images for the following were not saved, but were reported. motion 2/2. tone 2/2. breathing movements 2/2. Anterior placenta. IMPRESSION: Man intrauterine with cardiac activity and in cephalic presentation. Biophysical profile score of 8/8. Correlate with results of nonstress testing. Normal amniotic fluid with FIDENCIO of 19.4 centimeters. However, the deepest pocket is 8.6 centimeters, which is borderline for polyhydramnios. Dictated by Codie Singh MD @ 04/02/2024 1:46:51 PM (Electronically Signed)
== END 2024-04-01 12:49 | disposition home or self-care (01) ==
LOC: US 12:48
PROVIDERS: PCP Nurse Practitioner Family; Visit Provider Physician Assistant
DX: O24.419 Gestational diabetes mellitus in pregnancy, unspecified control (principal)
CPT/HCPCS: 76819

== ENCOUNTER 2024-04-09 13:55 | Outpatient (CLI) | payer BC, SELFPAY ==
--- NOTE | 2024-04-09 14:00 | CRLHL7_ITS ---
For Patients: As a result of the Century Cures Act, medical imaging exams and procedure reports are released immediately into your electronic medical record. You may view this report before your referring provider. If you have questions, please contact your health care provider. INDICATION: GDMA2 COMPARISON: 04/01/2024 TECHNIQUE: Real time hammer scale imaging of the fetus was performed. Without non-stress testing. FINDINGS: Sonographic imaging demonstrates a single living intrauterine gestation. Fetus demonstrates a regular cardiac rate of 142 beats per minute. Fetus has a vertex position. The amniotic fluid volume appears normal and there is a single deepest pocket measurement of 6.6 cm. The fetus was active and demonstrated normal breathing movements. There was normal flexion and extension of the trunk and extremities. IMPRESSION: Normal biophysical profile score of 8 out of 8. Dictated by Quentin Price MD @ 04/09/2024 8:23:57 PM (Electronically Signed)
--- OUTSIDE RECORDS SUMMARY | 2024-04-09 14:01 | XMS_ITS ---
Author Organization [facility] Address [address] [place] [address] Care Team Providers Care Bell Person Name Role Phone Unavailable Unavailable Unavailable Surgery Details Not on file Complications Check Surgery Details section. Procedure Estimated Blood Loss Check Surgery Details section. Procedure Findings Check Surgery Details section. Procedure Specimens Taken Check Surgery Details section.
--- OUTSIDE RECORDS SUMMARY | 2024-04-09 14:01 | XMS_ITS | Encounter Summary ---
Author Organization [facility] Address [address] [place] [address] Care Team Providers Care Stem Mounter Name Role Phone Unavailable Primary Care Provider Unavailabl e Reason for Visit * Reason Onset Date Comments MFM Triage 12/11/2023 Encounter Details Date Type Department Care Team (Late st Contact Info) Description 12/11/2023 Clinical Communication Department of Obstetrics and Gynecology in [place], [place] [address] [place] [address] Prescheduling, Provider MFM Triage Social History Tobacco Use Types Packs/Day Years Used Date Smoking Tobacco: Never Assessed [facility] Utilities Answer Date Recorded [facility] the [facility] 12/18/2023 Comments Unknown Sex and Gender Information Value Date Recorded Sex Assigned at Female 12/18/2023 9:03 AM CDT Legal Sex Female 10:53 PM SUPERVISOR BEATER ROOM Gender Identity Female 12/18/2023 9:03 AM CDT Sexual Orientation Straight 12/18/2023 9: 03 AM CDT documented as of this encounter Plan of Treatment Not on file documented as of this encounter Visit Diagnoses Not on filedocumented in this encounter
--- OUTSIDE RECORDS SUMMARY | 2024-04-09 14:01 | XMS_ITS | Encounter Summary ---
Author Organization [facility] Address [address] [place] [address] Care Team Providers Care Paper Cutter Name Role Phone Unavailable Primary Care Provider Unavailabl e Reason for Visit * Reason Onset Date Comments Communication 12/29/2023 Encounter Details Date Type Department Care Team (Late st Contact Info) Description 12/29/2023 Clinical Communication Department of Obstetrics and Gynecology in [place], [place] [address] [place] [phone] Diandra Franz M.D., Ph.D. [address] [place] [phone] Communication Social History Tobacco Use Types Packs/Day Years Used Date Smoking Tobacco: Every Day Cigarettes 0.5 10.9 Started: 2013 Smokeless Tobacco: Never Alcohol Use Standard Drinks/Week Comments Not Currently 0 (1 standard drink = 0.6 oz pur e alcohol) [facility] Utilities Answer Date Recorded In the past 12 months has [employer], gas, oil, or water [employer] threatened to shut off services in your [...] your living situation today? I have a [facility] place to live 12/18/2023 Estimated Date of Delivery Comme nts Yes 05/17/2024 Based on Ultraso und Sex and Gender Information Value Date Recorded Sex Assigned at Female 12/18/2023 9:03 AM CDT Legal Sex Female 10:53 PM PRINTING PRESSMAN Gender Identity Female 12/18/2023 9:03 AM CDT Sexual Orientation Straight 12/18/2023 9: 03 AM CDT documented as of this encounter Plan of Treatment Not on file documented as of this encounter Visit Diagnoses Not on filedocumented in this encounter
--- OUTSIDE RECORDS SUMMARY | 2024-04-09 14:01 | XMS_ITS | Clinical Summary ---
Author Organization [facility] Address [address] [place] [address] Care Team Providers Care Canine Service Instructor Trainer Name Role Phone Unavailable Primary Care Provider Unavailabl e Source Comments Patient records contain information from all sites at [facility]. For routine questions regarding patient records, call [phone] during business hours, M-F 8:00 AM - 5:00 PM Central Time. Record requests for emergency care only can be directed to [phone] at any time.[facility] Allergies Active Allergy Reactions Criticality Noted Date Comments Amoxicillin-Pot Clavulanate Rash 11/17/19 15 Cefaclor Rash 11/16/2014 Medications vpzrfrj-Fl-kcck- FA 27 mg iron- 1 mg tablet [...] 0.5 10.9 Started: 2013 Smokeless Tobacco: Never Tobacco Cessation:Ready to Q uit: Not Asked; Counseling Given: Not Answered Alcohol Use Standard Drinks/Week Comments Not Currently 0 (1 standard drink = 0.6 oz pur e alcohol) [facility] Utilities Answer Date Recorded In the past 12 months has th e [employer], [employer], oil, or water [employer] threatened to shut off services in your [...] your living situation today? I have a [facility] place to live 12/18/2023 Estimated Date of Delivery Comme nts Yes 05/17/2024 Based on Ultraso und Sex and Gender Information Value Date Recorded Sex Assigned at Female 12/18/2023 9:03 AM CDT Legal Sex Female 10:53 PM MAIL DISTRIBUTION CLERK Gender Identity Female 12/18/2023 9:03 AM CDT [...] Screening (Annual PHQ-2) 05/19/2023 COVID-19 Vaccine ( - season) 2024 Influenza Vaccine (#1) 2024 RSV [...] on patient's age to complete this topic Insurance [facility]
--- OUTSIDE RECORDS SUMMARY | 2024-04-09 14:01 | XMS_ITS | Referral Summary ---
Author Organization [facility] Address [address] [place] [address] Care Team Providers Care Stable Helper Name Role Phone Unavailable Primary Care Provider Unavailabl e Source Comments Patient records contain information from all sites at [facility]. For routine questions regarding patient records, call [phone] during business hours, M-F 8:00 AM - 5:00 PM Central Time. Record requests for emergency care only can be directed to [phone] at any time.[facility] Allergies Active Allergy Reactions Criticality Noted Date Comments Amoxicillin-Pot Clavulanate Rash 11/17/19 15 Cefaclor Rash 11/16/2014 Medications [id number]-[id number]-[id number]- FA 27 mg iron- 1 mg tablet [...] drink = 0.6 oz pur e alcohol) [facility] Utilities Answer Date Recorded In the [...] your living situation today? I have a [facility] place to live 12/18/2023 Estimated Date of Delivery Comme nts Yes 05/17/2024 Based on Ultraso und Sex and Gender Information Value Date Recorded Sex Assigned at Female 12/18/2023 9:03 AM CDT Legal Sex Female 10:53 PM GEOLOGICAL ENGINEERING TEACHER Gender Identity Female 12/18/2023 9:03 AM CDT [...] - Plan of Treatment Not on file Insurance [facility]
== END 2024-04-09 13:56 | disposition home or self-care (01) ==
LOC: US 13:56
PROVIDERS: PCP Nurse Practitioner Family; Visit Provider Physician Assistant
DX: O24.419 Gestational diabetes mellitus in pregnancy, unspecified control (principal)
CPT/HCPCS: 76819

== ENCOUNTER 2024-04-16 13:50 | Outpatient (CLI) | payer BC, SELFPAY ==
--- OUTSIDE RECORDS SUMMARY | 2024-04-16 13:53 | XMS_ITS | Encounter Summary ---
Author Organization [facility] Address [address] [place] [id number] Care Team Providers Care Jewelry Maker Name Role Phone Unavailable Primary Care Provider Unavailabl e Reason for Visit * Reason Onset Date Comments Communication 12/29/2023 Encounter Details Date Type Department Care Team (Late st Contact Info) Description 12/29/2023 Clinical Communication Department of Obstetrics and Gynecology in [place], [place] [address] [place] [phone] Diandra Franz M.D., Ph.D. [address] [place] [phone] Communication Social History Tobacco Use Types Packs/Day Years Used Date Smoking Tobacco: Every Day Cigarettes 0.5 10.9 Started: 2013 Smokeless Tobacco: Never Alcohol Use Standard Drinks/Week Comments Not Currently 0 (1 standard drink = 0.6 oz pur e alcohol) [facility] Utilities Answer Date Recorded In the past 12 months has [email or web address], gas, oil, or water [employer] threatened to shut off services in your [...] your living situation today? 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
--- OUTSIDE RECORDS SUMMARY | 2024-04-16 13:53 | XMS_ITS | Referral Summary ---
Author Organization [facility] Address [address] [place] [address] Care Team Providers Care Manager University Name Role Phone Unavailable Primary Care Provider Unavailabl e Source Comments Patient records contain information from all sites at [facility]. For routine questions regarding patient records, call [phone] during business hours, M-F 8:00 AM - 5:00 PM Central Time. Record requests for emergency care only can be directed to [phone] at any time.[facility] Allergies Active Allergy Reactions Criticality Noted Date Comments Amoxicillin-Pot Clavulanate Rash 11/17/19 15 Cefaclor Rash 11/16/2014 Medications [id number]-Ay-lojw- FA 27 mg iron- 1 mg tablet [...] drink = 0.6 oz pur e alcohol) [facility] Utilities Answer Date Recorded In the [...] your living situation today? 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
--- OUTSIDE RECORDS SUMMARY | 2024-04-16 13:53 | XMS_ITS | Clinical Summary ---
Author Organization [facility] Address [address] [place] [address] Care Team Providers Care Can Tender Name Role Phone Unavailable Primary Care Provider Unavailabl e Source Comments Patient records contain information from all sites at [facility]. For routine questions regarding patient records, call [phone] during business hours, M-F 8:00 AM - 5:00 PM Central Time. Record requests for emergency care only can be directed to [phone] at any time.[facility] Allergies Active Allergy Reactions Criticality Noted Date Comments Amoxicillin-Pot Clavulanate Rash 11/17/19 15 Cefaclor Rash 11/16/2014 Medications pxsnwto-Rl-knna- FA 27 mg iron- 1 mg tablet [...] drink = 0.6 oz pur e alcohol) [facility] Utilities Answer Date Recorded In the past 12 months has th e [employer], [employer], oil, or water [employer] threatened to shut off services in your [...] your living situation today? 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
--- OUTSIDE RECORDS SUMMARY | 2024-04-16 13:53 | XMS_ITS | Encounter Summary ---
Author Organization [facility] Address [address] [place] [address] Care Team Providers Care Hris Specialist Name Role Phone Unavailable Primary Care Provider Unavailabl e Reason for Visit * Reason Onset Date Comments MFM Triage 12/11/2023 Encounter Details Date Type Department Care Team (Late st Contact Info) Description 12/11/2023 Clinical Communication Department of Obstetrics and Gynecology in [place], [place] [address] [place] [phone] Prescheduling, Provider MFM Triage Social History Tobacco Use Types Packs/Day Years Used Date Smoking Tobacco: Never Assessed [facility] Utilities Answer Date Recorded In the [...] your living situation today? 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
--- OUTSIDE RECORDS SUMMARY | 2024-04-16 13:53 | XMS_ITS ---
Author Organization [facility] Address [address] [place] [address] Care Team Providers Care Property Claims Manager Name Role Phone Unavailable Unavailable Unavailable Surgery Details Not on file Complications Check Surgery Details section. Procedure Estimated Blood Loss Check Surgery Details section. Procedure Findings Check Surgery Details section. Procedure Specimens Taken Check Surgery Details section.
--- NOTE | 2024-04-16 14:00 | CRLHL7_ITS ---
For Patients: As a result of the Century Cures Act, medical imaging exams and procedure reports are released immediately into your electronic medical record. You may view this report before your referring provider. If you have questions, please contact your health care provider. INDICATION: Gestational diabetes in TECHNIQUE: Ultrasound OB pelvis transabdominal. Real-time hammer-scale imaging of the fetus was performed with color Doppler and spectral Doppler analysis of the umbilical artery without stress testing. COMPARISON: 04/09/2024 FINDINGS: Clinical Age: 35 weeks 4 days (NIRMALA 05/17/2024) Sonographic imaging demonstrates a single living intrauterine gestation. Fetus demonstrates a regular cardiac rate of 131 beats per minute. Fetus has a cephalic orientation. The placenta lies anterior. Amniotic fluid volume appears normal with a MVP of 6.2 cm. breathing movements, motion, and tone were all observed. IMPRESSION: Single viable intrauterine with a biophysical profile 12/24. Dictated by Vaughn Valdez MD @ 04/16/2024 3:49:25 PM (Electronically Signed)
== END 2024-04-16 13:51 | disposition home or self-care (01) ==
LOC: US 13:51
PROVIDERS: PCP Nurse Practitioner Family; Visit Provider Physician Assistant
DX: O24.419 Gestational diabetes mellitus in pregnancy, unspecified control (principal)
CPT/HCPCS: 76819

== ENCOUNTER 2024-04-16 14:58 | Outpatient (CLI) | payer BC, SELFPAY ==
[2024-04-17 14:42] LABS: Strep B DNA Probe Negative (Negative)
[2024-04-17 14:46] LABS: Strep B Susceptibility Needed? No
== END 2024-04-16 14:59 | disposition home or self-care (01) ==
PROVIDERS: PCP Nurse Practitioner Family; Visit Provider Obstetrics & Gynecology
DX: Z34.93 Encounter for supervision of normal pregnancy, unspecified, third trimester (principal); Z3A.35 35 weeks gestation of pregnancy
CPT/HCPCS: 87081; 87653

== ENCOUNTER 2024-04-22 13:49 | Outpatient (CLI) | payer BC, SELFPAY ==
--- NOTE | 2024-04-22 14:00 | CRLHL7_ITS ---
For Patients: As a result of the Century Cures Act, medical imaging exams and procedure reports are released immediately into your electronic medical record. You may view this report before your referring provider. If you have questions, please contact your health care provider. HISTORY: Maternal gestational diabetes. COMPARISON: Biophysical profile score from 04/16/2024 and follow-up Ob ultrasound from 03/25/2024. TECHNIQUE: Ultrasound examination of the is performed with transabdominal technique. The biophysical profile score is also obtained. FINDINGS: A single intrauterine gestation is seen in cephalic presentation with regular cardiac activity at 147 beats per minute. The placenta is anterior and is free of the cervical os. The placental grade is 2 and the amniotic fluid volume is normal. Single deepest vertical pocket: Normal at 6.7 cm. BPD: 8.9 cm 36 weeks 1 day HC: 33.0 cm 34 weeks 4 days AC: 35.1 cm 39 weeks 0 days. Greater than the 97th percentile, previously 91st percentile FL: 6.4 cm 33 weeks 1 day. Less than the 3rd percentile, previously 14th percentile The estimated age by ultrasound is 36 weeks 3 days, with an estimated date of delivery of 05/17/2024. This correlates well with the clinical age of 36 weeks 3 days and the previous OB ultrasound.. The ultrasound ratios are normal. The estimated weight of 3200 grams is at the 74th percentile based on the clinical dates. This was previously at the 76th percentile. The biophysical profile score is 8/8 with no points off. IMPRESSION: 1. Single intrauterine gestation in breech presentation with regular cardiac activity. 2. Estimated gestational age is 36 weeks 3 days. 3. There has been appropriate interval growth. 4. Estimated weight of 3200 grams is at the 74th percentile based on the clinical dates. This was previously at the 76th percentile. 5. The biophysical profile score is 8/8 with no points off. Dictated by Gregory Fontana MD @ 04/23/2024 9:47:34 PM (Electronically Signed)
== END 2024-04-22 13:50 | disposition home or self-care (01) ==
LOC: US 13:50
PROVIDERS: PCP Nurse Practitioner Family; Visit Provider Physician Assistant
DX: O24.419 Gestational diabetes mellitus in pregnancy, unspecified control (principal); Z3A.36 36 weeks gestation of pregnancy
CPT/HCPCS: 76816; 76819

== ENCOUNTER 2024-04-28 15:54 | Inpatient (IN) | payer BC, SELFPAY ==
--- NOTE | 2024-04-28 16:00 | P.OBHP_ITS ---
OB - H&P: HPI Labor/Induction History of Present Illness Time Seen by Provider: 16:00 Date Seen: 04/28/24 Chief Complaint: The patient is a 33 year old 2 para 1 at 37 weeks gestation by 1st trimester ultrasound, who presents for scheduled induction in the setting of chronic hypertension on medications. is otherwise complicated by GDM A2, obesity, tobacco use disorder, normal Pap and Rh negative. Complete history and physical was completed on 04/16/[address] Hakeem Morales, please see this note for complete details. Sherine is feeling well today with no acute concerns. She denies any regular/painful uterine contractions, vaginal bleeding or leaking of fluid. Endorses active movement. Denies unrelenting headache, vision changes right upper quadrant pain. Chief complaint: IOL CHTN on meds Narrative: Sherine Salcido is a 33 year old female Specific Issues/Plans G 2 P 1 NIRMALA 05/17/2024 based on first trimester ultrasound. Life Partner: Jose Pryor. Daughter: Eleno. Baby: Boy! [place] name. H&P by NDP on 04/16/2024 # Chronic hypertension. * Baseline preeclampsia labs: Hemoglobin 14.0, platelets 370, BUN 7, creatinine 0.5, AST 24, ALT 38, urine P/C ratio 0.20 * Recommend daily baby aspirin starting at 12 weeks to reduce risk of p reeclampsia-not taking 02/10/24 * 11/24/2023 started Labetalol 100mg PO BID. Goal BP <140/90. * 24 hour urine: total protein is 331.5. * Nephrology consult: [facility] would not recommend Nephrology consult at this time, but would instead focus on blood pressure control. * Delivery 37w0d - 39w6d if BP remains controlled on medication. # Gestational diabetes A2 * Hemoglobin A1c 5.7% * Early GDM testing at 16 weeks 12/01/2023: 175 * 3hr GTT: Fasting 106, patient opted to discontinue the test and call herself GDM * Nutrition referral. * Diabetic ED/initiation of insulin 01/26: 15U@HS, stopped insulin at 24 weeks, instructed to restart on 02/27/24 * Increased NPH to 20uHS on 03/25/2024 # BMI 37.8. * Hemoglobin A1c 5.7% * Recommend daily baby aspirin at 12 weeks # ASCUS (+) other HPV at first visit: * Colposcopy on 11/24/2023 at 15 weeks: No biopsy * PAP at 6 week visit. # Tobacco use. Smoking half a pack per day. Reviewed risks associated with tobacco use in . Encouraged her to work on decreasing in quitting. # Rh negative * Rhogam: 02/27/24 * Rh partner testing form signed 02/10/24 - pt will bring partner to 28 week visit-declined testing testing plan: Growth ultrasound q.4 weeks starting at 28 weeks Twice weekly testing starting at 32 weeks, testing order form completed 01/28 Imagin12/24/2023 [facility]: Man , no abnormalities identified. However the anatomy survey remains incomplete due to position and maternal body habitus. Recommend follow-up ultrasound for completion of anatomy. Size equal dates. The placenta is without evidence of previa with a placental Lopez occupying a relatively small area and the placenta near the cord insertion. The cervix is long and closed. The amniotic fluid appears normal. Limited views of the adnexa without obvious abnormalities. Normal amount of amniotic fluid. Placenta is anterior. 01/15/2024 follow up anatomy in [place]:Normal missed anatomy although there is incomplete visualization of the arch, tongue and palate. Sonographic gestational age 22 weeks 5 days and sonographic due date of 05/15/2024. Good correlation with dates. Estimated weight 75th percentile. Abdominal circumference 73rd percentile. 02/27/24: Vertex, SDP: 6.8cm, AC: 82%, EFW: 63%. 03/25/2024: Vtx, SDP 6.9cm. BPP 8. EFW: 2223 g, 4 lb 14 oz, 76%. BPD 70%, HC 97%, AC 91%, FL 14%. 04/22/2024: Vtx. SDP 6.7cm. EFW 3147gm, 6#15oz, 74%. BPD 54%, HC 47%, AC >97%, FL <3%. BPP 8/8. Covid: Not completed. Recommended. Patient declines. Tdap: Declined. RSV: Declined. 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 Baseline of 135, moderate variability, several qualifying 15 x 15 accelerations noted, no deceleration Amity: No regular uterine contractions Cervix: 140/-2, cook catheter placed without difficulty OB - Problem Based A/P Additional Plan (1) GDM, class A2: Status: Acute (2) Chronic hypertension: Status: Acute (3) BMI over 35: Status: Acute (4) Tobacco use: Status: Acute (5) : Status: Acute Plan Sherine is a 33-year-old at 37 weeks 2 days gestational age admitted for scheduled induction of labor. is complicated by chronic hypertension (labetalol 100 mg b.i.d.), GDM A2, tobacco use disorder, obesity, abnormal Pap and Rh-negative status. - Cook catheter was placed for cervical ripening. Plan to start low-dose Pitocin at 0030 tonight. - Therapeutic rest with morphine and Vistaril if desired by patient - Diligent blood pressure monitoring ongoing. Repeat HELLP labs obtained on admission. - GDM blood glucose monitoring protocol and treatment in effect. Plan to give half of her normal NPH tonight (22 units typically), so 12 u qHS. - Blood type A negative, plan cord blood at time of delivery.T/S to be drawn with admission labs. - GBS negative
[2024-04-28 16:02] VITALS: PULSE 82; O2SAT 100
[2024-04-28 16:22] VITALS: BMI 39.4
[2024-04-28 16:30] VITALS: PULSE 82; O2SAT 99
[2024-04-28 16:31] VITALS: BP 127/78; PULSE 80; RESP 16; TEMP 37.2
[2024-04-28 17:11] LABS: Basophils Percent Auto 0.2 % (0.0-3.0); Hematocrit 39.3 % (33.0-51.0); Hemoglobin* 13.1 gm/dL (12.0-16.0); Lymphocytes Percent Auto 16.5 % (20-44); Mean Corpuscular HGB Conc 33 gm/dL (32-36); Mean Corpuscular Hemoglobin 30 pg (26-34); Mean Corpuscular Volume 89 fL (80-100); Monocytes Percent Auto 6.7 % (0.0-11.0); Neutrophils Percent Auto 74.6 % (42.0-72.0); Platelet Count* 343 K/uL (140-440); RDW Coefficient of Variation % 13.2 % (11.5-15.5); White Blood Count* 18.08 K/uL (4.50-11.00)
[2024-04-28 17:18] LABS: Slide Review Reflex No
[2024-04-28 17:43] LABS: Alanine Aminotransferase* 19 U/L (4-35); Aspartate Amino Transferase* 21 U/L (12-35); Blood Urea Nitrogen* 8 mg/dL (5-24); Creatinine* 0.4 mg/dL (0.5-1.5); Est. Creatinine Clearance* 161.17; Estimated Glomerular Filt Rate 136 ml/min
[2024-04-28 20:15] VITALS: BP 120/70; PULSE 83; RESP 16; TEMP 36.8
[2024-04-28 20:17] VITALS: PULSE 77; O2SAT 99
[2024-04-28] MEDS: INSULIN ASPART 100 UNIT/ML SUBCUT (20:38)
[2024-04-28] MEDS: INSULIN NPH 100 UNIT/ML 12 UNIT SUBCUT (22:00)
[2024-04-29] VITALS (105 sets, daily range): BP systolic 93–149; BP diastolic 52–99; PULSE 63–127; RESP 12–18; TEMP 36.7–37.3; O2SAT 91–100
[2024-04-29] MEDS: LACTATED RINGERS 1000 ML 1,000 ML 125 ML IV ×3 (00:47→13:14)
[2024-04-29] MEDS: OXYTOCIN 30 unit/500 ML in NS 30 UNIT/500 ML BAG IVPB (01:12)
[2024-04-29] MEDS: MORPHINE 10 MG/ML inj IM (01:21)
[2024-04-29] MEDS: hydrOXYzine pamoate 25 MG CAPSULE 100 MG PO (01:22)
--- NOTE | 2024-04-29 08:31 | P.OBPN_ITS ---
Subjective Time Seen by Provider: 08:31 Date Seen: 04/29/24 Narrative: Subjective: Sherine is feeling contractions but not terribly uncomfortable with them. Pitocin: 7 milliunits/minute. Verbal consent obtained to perform artificial rupture of membranes. Vital signs: Per electronic medical record. EFM: Baseline 140s, positive accelerations, negative decelerations, moderate variability, reactive. Category 1. [place]: Contractions every 2-3 minutes. SVE: 4 cm/60 %/-2. AROM with large amount of clear fluid. Assessment: 33-year-old 2 para 1 at 37 weeks 3 days gestation undergoing induction of labor for chronic hypertension on medication Plan: 1. Continue Pitocin per labor induction protocol. 2. Planning epidural for labor analgesia. 3. GBS negative 4. Blood type: A negative, antibody screen was positive for anti-D (Rhogam) on admission. Objective Vital Signs: Last Vital Signs Temp 98.2 F 04/29/24 07:40 Pulse 75 04/29/24 08:03 Resp 18 04/29/24 07:40 BP 119/63 04/29/24 08:03 Pulse Ox 99 04/29/24 07:32
[2024-04-29] MEDS: ROPIVACAINE 0.2% 100 ml 100 ML 12 MG EPIDURAL (10:58)
[2024-04-29] MEDS: LIDOCAINE 2% (PF) 5 ML VIAL EPIDURAL ×2 (10:58→11:46)
[2024-04-29] MEDS: ROPIVACAINE 0.2 % PF 10 ML INJ 20 MG EPIDURAL (10:58)
--- NOTE | 2024-04-29 11:20 | PM.ANBPRC ---
[facility] Medical History Chronic hypertension ?I10 - Essential (primary) hypertension (ICD-10) Hair loss ?L65.9 - Nonscarring hair loss, unspecified (ICD-10) Prediabetes ?R73.03 - Prediabetes (ICD-10) White classification A1 gestational diabetes mellitus (GDM) (08/2020) ?O24.410 - Gestational diabetes mellitus in , diet controlled (ICD-10) Normal spontaneous vaginal delivery (12/22/20) ?O80 - Encounter for full-term uncomplicated delivery (ICD-10) Gestational hypertension (11/2020) ?O13.9 - Gestational [-induced] hypertension without significant proteinuria, unspecified trimester (ICD-10) Surgical History History of tonsillectomy ?Z90.89 - Acquired absence of other organs (ICD-10) History of cholecystectomy ?Z90.49 - Acquired absence of other specified parts of digestive tract (ICD-10) Social History What is your current living situation?: I presently have a place to live Problems where you live: no known problems In the past 12 months, utilities in danger of being shut off: no In the past 12 mos, have been you worried that your food would run out before you had money to buy more?: never true In the past 12 mos, the food you bought just didn't last and you didn't have money to buy more?: never true Smoking Status: Current every day smoker How often does anyone, including family, friends and others, physically hurt you: never How often does anyone, including family, friends and others, insult or talk down to you: never How often does anyone, including family, friends and others, threaten you with harm: never How often does anyone, including family, friends and others, scream or curse at you: never Meds Home Medications and Allergies Home Medications ?Medication ?Instructions ?Recorded ?Confirmed ?Type vits no.126-ferrous fum 1 tab PO QDAY 10/31/23 04/28/24 History 28 mg iron-folic acid 800 mcg tablet (Classic ) aspirin 81 mg tablet,delayed 81 mg PO QDAY 12/29/23 04/28/24 History release famotidine 20 mg tablet (Acid 40 mg PO QDAY 03/25/24 04/28/24 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)) Allergies Allergy/AdvReac Type Severity Reaction Status Date / Time amoxicillin Allergy Mild Rash Verified 04/22/24 14:38 Results Labs Labs: Laboratory Results - last 24 hr 04/28/24 16:56 WBC 18.08 H RBC 4.40 Hgb 13.1 Hct 39.3 MCV 89 MCH 30 MCHC 33 RDW Coeff of Loren 13.2 Plt Count 343 Neut % (Auto) 74.6 H Lymph % (Auto) 16.5 L Greer % (Auto) 6.7 Eos % (Auto) 1.0 Baso % (Auto) 0.2 Neut # (Auto) 13.50 H Lymph # (Auto) 3.00 H Greer # (Auto) 1.20 H Eos # (Auto) 0.20 Baso # (Auto) 0.00 Abs Immat Gran (auto) 0.20 Imm/Tot Granulo (auto) 1.0 BUN 8 Creatinine 0.4 L Estimated Creat Clear 161.17 Estimated GFR 136 AST 21 ALT 19 Blood Type A Negative Antibody Screen POSITIVE Antibody Identification Anti-D Vital Signs Vital Signs: Last Vital Signs Temp 98.2 F 04/29/24 07:40 Pulse 70 04/29/24 11:19 Resp 18 04/29/24 07:40 BP 128/63 04/29/24 11:19 Pulse Ox 100 04/29/24 11:18 Weight: 99.881 kg Height: 158.75 cm Anesthesia Procedures Epidural Insertion Patient Location: OB Start Time: 11:00 Stop Time: 11:20 Start Date: 04/29/24 Stop Date: 04/29/24 Reason for Block: procedure for pain Patient Position: sitting Performed By: Cortes Aguilar Preanesthetic Checklist: IV checked, risks and benefits discussed, surgical consent, monitors and equipment checked, pre-op evaluation, timeout performed and anesthesia consent Prep: chlorhexidine gluconate Monitoring: blood pressure monitoring, continuous pulse oximetry and heart rate Approach: midline Vertebral Space: lumbar (1-5) Epidural Technique: HARI air Needle Type: Tuohy needle Injection Technique: continuous catheter Needle gauge: 17 Needle Length (cm): 10 cm Needle Insertion Depth (cm): 7 Catheter Gauge: 19 Catheter Type: multi-orifice Catheter at skin depth (cm): 13 Test Dose Result: negative and lidocaine 1.5% with epinephrine 1 to 200,000
--- NOTE | 2024-04-29 12:09 | PM.ANBPRC ---
[facility] Medical History Chronic hypertension ?I10 - Essential (primary) hypertension (ICD-10) Hair loss ?L65.9 - Nonscarring hair loss, unspecified (ICD-10) Prediabetes ?R73.03 - Prediabetes (ICD-10) White classification A1 gestational diabetes mellitus (GDM) (08/2020) ?O24.410 - Gestational diabetes mellitus in , diet controlled (ICD-10) Normal spontaneous vaginal delivery (12/22/20) ?O80 - Encounter for full-term uncomplicated delivery (ICD-10) Gestational hypertension (11/2020) ?O13.9 - Gestational [-induced] hypertension without significant proteinuria, unspecified trimester (ICD-10) Surgical History History of tonsillectomy ?Z90.89 - Acquired absence of other organs (ICD-10) History of cholecystectomy ?Z90.49 - Acquired absence of other specified parts of digestive tract (ICD-10) Social History What is your current living situation?: I presently have a place to live Problems where you live: no known problems In the past 12 months, utilities in danger of being shut off: no In the past 12 mos, have been you worried that your food would run out before you had money to buy more?: never true In the past 12 mos, the food you bought just didn't last and you didn't have money to buy more?: never true Smoking Status: Current every day smoker How often does anyone, including family, friends and others, physically hurt you: never How often does anyone, including family, friends and others, insult or talk down to you: never How often does anyone, including family, friends and others, threaten you with harm: never How often does anyone, including family, friends and others, scream or curse at you: never Meds Home Medications and Allergies Home Medications ?Medication ?Instructions ?Recorded ?Confirmed ?Type vits no.126-ferrous fum 1 tab PO QDAY 10/31/23 04/28/24 History 28 mg iron-folic acid 800 mcg tablet (Classic ) aspirin 81 mg tablet,delayed 81 mg PO QDAY 12/29/23 04/28/24 History release famotidine 20 mg tablet (Acid 40 mg PO QDAY 03/25/24 04/28/24 History Supervisor Dry Paste (famotidine)) Allergies Allergy/AdvReac Type Severity Reaction Status Date / Time amoxicillin Allergy Mild Rash Verified 04/22/24 14:38 Results Labs Labs: Laboratory Results - last 24 hr 04/28/24 16:56 WBC 18.08 H RBC 4.40 Hgb 13.1 Hct 39.3 MCV 89 MCH 30 MCHC 33 RDW Coeff of Loren 13.2 Plt Count 343 Neut % (Auto) 74.6 H Lymph % (Auto) 16.5 L [place] % (Auto) 6.7 Eos % (Auto) 1.0 Baso % (Auto) 0.2 Neut # (Auto) 13.50 H Lymph # (Auto) 3.00 H [place] # (Auto) 1.20 H Eos # (Auto) 0.20 Baso # (Auto) 0.00 Abs Immat Gran (auto) 0.20 Imm/Tot Granulo (auto) 1.0 BUN 8 Creatinine 0.4 L Estimated Creat Clear 161.17 Estimated GFR 136 AST 21 ALT 19 Blood Type A Negative Antibody Screen POSITIVE Antibody Identification Anti-D Vital Signs Vital Signs: Last Vital Signs Temp 98.1 F 04/29/24 11:17 Pulse 81 04/29/24 12:08 Resp 18 04/29/24 07:40 BP 140/67 H 04/29/24 12:08 Pulse Ox 100 04/29/24 12:06 Weight: 99.881 kg Height: 158.75 cm Anesthesia Procedures Epidural Insertion Patient Location: OB Start Time: 11:50 Stop Time: 12:10 Start Date: 04/29/24 Stop Date: 04/29/24 Reason for Block: primary anesthetic Patient Position: sitting Performed By: Ronny Brooks Preanesthetic Checklist: IV checked, risks and benefits discussed, surgical consent, monitors and equipment checked, pre-op evaluation, timeout performed and anesthesia consent Prep: chlorhexidine gluconate Monitoring: blood pressure monitoring, relocation coordinator, continuous pulse oximetry and heart rate Approach: midline Vertebral Space: lumbar (1-5) Needle Type: Tuohy needle Injection Technique: continuous catheter (catheter) Needle gauge: 17 Needle Length (cm): 10 cm Needle Insertion Depth (cm): 7 Catheter Gauge: 19 Catheter Type: multi-orifice Catheter at skin depth (cm): 12 Test Dose Result: negative and lidocaine 1.5% with epinephrine 1 to 200,000
[2024-04-29] MEDS: miSOPROStoL 800 MCG/4 TABLET PR (13:49)
--- NOTE | 2024-04-29 14:01 | W.PM.OBVAGDE ---
OB Procedure Vag Delivery Mother Details Mother Details: Sherine is a 33 year-old G 2 P 1 now 2 admitted on 04/28/2024 at 4:00 p.m. at 37 Weeks, 2 Days gestation for induction of labor due to chronic hypertension on medication. AROM occurred at 8:15 a.m. on 04/29/2024 with clear fluid. Labor Analgesia: Epidural Pitocin: Yes Labor onset: 04/29/2024 at 8:15 a.m.. Complete: 04/29/2024 at 1:15 p.m.. Pushin04/29/2024 at 1:25 p.m.. heart tones during second stage were: Baseline of 130s, moderate variability between contractions with variable decelerations to the 80s with contractions, immediate return to baseline. Reassuring. At 1:34 p.m. a viable male infant delivered in vertex direct OA presentation over first-degree vaginal laceration via spontaneous vaginal delivery. The infant was placed on maternal abdomen. Cord was clamped and cut after a 60 second delay. Nose and mouth were bulb suctioned. weight pending. 8 at 1 minute and 9 at 5 minutes. Shoulder dystocia: No. Nuchal cord: No Placenta delivered spontaneously and complete at 1:37 p.m. with a 3 vessel cord. There was a marginal insertion of the umbilical cord into the placenta. The patient received 800 mg Cytotec rectally after repair of the vaginal laceration due to mild lower uterine segment atony. She also received Pitocin 30 units in 500 mL saline at 300 mL/hour. Laceration(s): First-degree vaginal. Repaired using 4-0 Vicryl suture in a running manner. Blood loss: 400 mL. Blood loss measurement type: Quantitative Sponge and needles counts are correct. Specimen: Placenta Mother and infant were stable after delivery. 's name: Pending The patient is planning on breast feeding. : 2 Para: 1 Weeks Gestation: 37 Admission Date: 04/28/24 Additional Details Amniotic Membrane Status: AROM Amniotic Membrane Rupture Date: 04/29/24 Amniotic Membrane Rupture Time: 08:15 Amniotic Membrane Fluid Description: Clear Analgesia/Anesthesia Type: Epidural Waterbirth: No Pitcoin: Yes Intrapartal Events: Labor Induction Induction Method: Intracervical balloon catheter, per pitocin protocol and AROM Labor Onset: 08:15 Complete: 13:15 Pushin:25 Heart: heart tones during second stage were category 2 with variable decelerations to the 80s with contractions with immediate return to baseline and moderate variability between contractions. Delivery Details Delivery Date: 04/29/24 Delivery Time: 13:34 Route of delivery: Gender: Male Viability: Alive; Heart Rate Present Position at Delivery: OA Delivery Details: Delivered via spontaneous vaginal delivery. was placed on maternal abdomen.? Cord was clamped and cut after a 60 second delay. Nose and mouth were bulb suctioned.? weight pending. 1 Minute Interval Total Score: 8 5 Minute Interval Total Score: 9 Additional Details Shoulder Dystocia: No Placenta Delivery Time: 13:37 Placental Delivery Description: Spontaneous Delivery repair: Vicryl Procedure Done: Global Blood Loss: 400 Laceration: Vaginal - 1st Degree Blood Loss Measurement Type: QBL Bakri Used: No Sponge/Need Count Correct: Yes Cord Vessel Description: 3 Vessels Event Summary Status: Mother and were stable after delivery. Disposition: floor
[2024-04-29] MEDS: IBUPROFEN 600 MG TABLET PO (15:02)
[2024-04-29] MEDS: ACETAMINOPHEN 500 MG TABLET 1000 MG PO (21:28)
[2024-04-30] MEDS: IBUPROFEN 600 MG TABLET PO (04:36)
[2024-04-30 04:43] VITALS: BP 141/81; PULSE 84; RESP 12; TEMP 36.7; O2SAT 99
[2024-04-30 04:45] VITALS: BP 114/74; PULSE 73
[2024-04-30 05:21] LABS: Hematocrit 36.3 % (33.0-51.0); Mean Corpuscular HGB Conc 33 gm/dL (32-36); Mean Corpuscular Hemoglobin 30 pg (26-34); Mean Corpuscular Volume 91 fL (80-100); Platelet Count* 351 K/uL (140-440); White Blood Count* 23.59 K/uL (4.50-11.00)
[2024-04-30 05:29] LABS: Slide Review Reflex No
[2024-04-30 05:37] LABS: Alanine Aminotransferase* 17 U/L (4-35); Aspartate Amino Transferase* 21 U/L (12-35); Blood Urea Nitrogen* 9 mg/dL (5-24); Creatinine* 0.5 mg/dL (0.5-1.5); Est. Creatinine Clearance* 128.94; Estimated Glomerular Filt Rate 129 ml/min
--- NOTE | 2024-04-30 08:13 | P.DS_ITS ---
DS: Providers Provider Date Seen: 04/30/24 Date of admission: 04/28/24 15:54 Primary care physician: Radha Ribeiro APRN, CODING SPECIALIST Admitting Clinician: Leslee Rehman MD Attending Physician on discharge: Leslee Rehman MD Date of Discharge: 04/30/24 DS: Diagnosis Discharge Diagnosis (1) GDM, class A2: Status: Acute (2) Chronic hypertension: Status: Acute (3) BMI over 35: Status: Acute (4) Tobacco use: Status: Acute (5) care following vaginal delivery: Status: Acute Exam Narrative: Exam Narrative: GENERAL APPEARANCE:? normal affect, alert, no distress? MOOD:? appropriate? CHEST:? clear to auscultation and percussion? HEART:? regular rate and rhythm? ABDOMEN:? soft, non-tender the uterine fundus is U/2 and is appropriate for the stage of recovery.? PERINEUM:? mild edema of the perineum, there is a 1st degree vaginal laceration that is healing well.? EXTREMITIES:? normal and no edema? Const: Vital Signs, click to edit/add: Vital Signs - 24 hr 04/29/24 09:07 04/29/24 10:05 04/29/24 10:33 Temperature Pulse Rate 83 75 75 Pulse Rate [Pulse Oximeter] Respiratory Rate Blood Pressure 132/77 145/65 H 122/58 L Blood Pressure [Ri ght Arm] Pulse Oximetry Oxygen Delivery Me od 04/29/24 10:52 04/29/24 10:58 04/29/24 11:03 Temperature Pulse Rate Pulse Rate [Pulse Oximeter] Respiratory Rate Blood Pressure Blood Pressure [Ri ght Arm] Pulse Oximetry 99 100 100 Oxygen Delivery Me od 04/29/24 11:08 04/29/24 11:13 04/29/24 11:14 Temperature Pulse Rate 75 Pulse Rate [Pulse Oximeter] Respiratory Rate Blood Pressure 131/63 Blood Pressure [Ri ght Arm] Pulse Oximetry 98 100 Oxygen Delivery Me thod 04/29/24 11:15 04/29/24 11:17 04/29/24 11:18 Temperature 98.1 F Pulse Rate 89 75 Pulse Rate [Pulse Oximeter] Respiratory Rate Blood Pressure 146/63 H 136/63 Blood Pressure [Ri ght Arm] Pulse Oximetry [facility] 04/[facility] 11:19 04/29/24 11:22 04/29/24 11:23 Temperature Pulse Rate 70 77 78 Pulse Rate [Pulse Oximeter] Respiratory Rate Blood Pressure 128/63 143/79 H 133/70 Blood Pressure [Ri ght Arm] Pulse Oximetry 100 Oxygen Delivery Me thod 04/29/24 11:28 04/29/24 11:30 04/29/24 11:33 Temperature Pulse Rate 76 Pulse Rate [Pulse Oximeter] Respiratory Rate Blood Pressure 134/60 Blood Pressure [Ri ght Arm] Pulse Oximetry 99 100 Oxygen Delivery Me thod 04/29/24 11:36 04/29/24 11:46 04/29/24 11:51 Temperature Pulse Rate 74 Pulse Rate [Pulse Oximeter] Respiratory Rate Blood Pressure 132/62 Blood Pressure [Ri ght Arm] Pulse Oximetry 100 100 Oxygen Delivery Me thod 04/29/24 11:56 04/29/24 11:58 04/29/24 12:00 Temperature Pulse Rate 88 86 Pulse Rate [Pulse Oximeter] Respiratory Rate Blood Pressure 129/72 140/63 H Blood Pressure [Ri ght Arm] Pulse Oximetry 100 Oxygen Delivery Fl thod 04/29/24 12:01 04/29/24 12:01 04/29/24 12:02 Temperature Pulse Rate 88 Pulse Rate [Pulse Oximeter] Respiratory Rate Blood Pressure 146/65 H Blood Pressure [Ri ght Arm] Pulse Oximetry 92 92 Oxygen Delivery Me thod 04/29/24 12:04 04/29/24 12:06 04/29/24 12:08 Temperature Pulse Rate 86 82 81 Pulse Rate [Pulse Oximeter] Respiratory Rate Blood Pressure 131/63 142/65 H 140/67 H Blood Pressure [Ri ght Arm] Pulse Oximetry 100 Oxygen Delivery Fl thod 04/29/24 12:10 04/29/24 12:11 04/29/24 12:14 Temperature 98.8 F Pulse Rate 77 Pulse Rate [Pulse Oximeter] Respiratory Rate 18 Blood Pressure 132/64 Blood Pressure [Ri ght Arm] Pulse Oximetry 100 Oxygen Delivery Me thod 04/29/24 12:15 04/29/24 12:16 04/29/24 12:21 Temperature Pulse Rate 76 Pulse Rate [Pulse Oximeter] Respiratory Rate Blood Pressure 148/72 H Blood Pressure [Ri ght Arm] Pulse Oximetry 100 91 Oxygen Delivery Me thod 04/29/24 12:21 04/29/24 12:33 04/29/24 12:48 Temperature Pulse Rate 84 92 Pulse Rate [Pulse Oximeter] Respiratory Rate Blood Pressure 115/56 L 138/61 Blood Pressure [Ri ght Arm] Pulse Oximetry 100 Oxygen Delivery Me thod 04/29/24 13:04 04/29/24 13:18 04/29/24 13:29 Temperature Pulse Rate 78 86 Pulse Rate [Pulse Oximeter] Respiratory Rate Blood Pressure 126/58 L 144/63 H Blood Pressure [Ri ght Arm] Pulse Oximetry 100 Oxygen Delivery Me thod 04/29/24 13:34 04/29/24 13:36 04/29/24 13:39 Temperature Pulse Rate 111 H 98 Pulse Rate [Pulse Oximeter] Respiratory Rate Blood Pressure 149/65 H 139/99 H Blood Pressure [Ri ght Arm] Pulse Oximetry 99 98 Oxygen Delivery Me thod 04/29/24 13:44 04/29/24 13:47 04/29/24 13:48 Temperature 99.1 F Pulse Rate 81 Pulse Rate [Pulse Oximeter] Respiratory Rate Blood Pressure 120/57 L Blood Pressure [Ri ght Arm] Pulse Oximetry 98 Oxygen Delivery Me thod 04/29/24 13:49 04/29/24 13:54 04/29/24 13:59 Temperature Pulse Rate Pulse Rate [Pulse Oximeter] Respiratory Rate Blood Pressure Blood Pressure [Ri ght Arm] Pulse Oximetry 99 99 99 Oxygen Delivery Me thod 04/29/24 14:02 04/29/24 14:03 04/29/24 14:04 Temperature 98.4 F Pulse Rate 82 Pulse Rate [Pulse Oximeter] Respiratory Rate Blood Pressure 119/62 Blood Pressure [Ri ght Arm] Pulse Oximetry 99 Oxygen Delivery Me thod 04/29/24 14:09 04/29/24 14:14 04/29/24 14:18 Temperature Pulse Rate 98 Pulse Rate [Pulse Oximeter] Respiratory Rate Blood Pressure 121/67 Blood Pressure [Ri ght Arm] Pulse Oximetry 100 99 Oxygen Delivery Me thod 04/29/24 14:19 04/29/24 14:24 04/29/24 14:29 Temperature Pulse Rate Pulse Rate [Pulse Oximeter] Respiratory Rate Blood Pressure Blood Pressure [Ri ght Arm] Pulse Oximetry 99 99 99 Oxygen Delivery Me thod 04/29/24 14:32 04/29/24 14:33 04/29/24 14:34 Temperature 98.7 F Pulse Rate 83 Pulse Rate [Pulse Oximeter] Respiratory Rate Blood Pressure 117/61 Blood Pressure [Ri ght Arm] Pulse Oximetry 99 Oxygen Delivery Me thod 04/29/24 14:39 04/29/24 14:44 04/29/24 14:48 Temperature 99.2 F Pulse Rate Pulse Rate [Pulse Oximeter] Respiratory Rate Blood Pressure Blood Pressure [Ri ght Arm] Pulse Oximetry 99 99 Oxygen Delivery Me thod 04/29/24 14:49 04/29/24 14:54 04/29/24 14:59 Temperature Pulse Rate 87 Pulse Rate [Pulse Oximeter] Respiratory Rate Blood Pressure 134/57 L Blood Pressure [Ri ght Arm] Pulse Oximetry 98 98 98 Oxygen Delivery Me thod 04/29/24 15:02 04/29/24 15:03 04/29/24 15:04 Temperature 99.2 F Pulse Rate 96 Pulse Rate [Pulse Oximeter] Respiratory Rate Blood Pressure 134/65 Blood Pressure [Ri ght Arm] Pulse Oximetry 99 Oxygen Delivery Me thod 04/29/24 15:09 04/29/24 15:14 04/29/24 15:18 Temperature Pulse Rate 91 Pulse Rate [Pulse Oximeter] Respiratory Rate Blood Pressure 116/58 L Blood Pressure [Ri ght Arm] Pulse Oximetry 99 99 Oxygen Delivery Me thod 04/29/24 15:19 04/29/24 15:24 04/29/24 15:29 Temperature Pulse Rate Pulse Rate [Pulse Oximeter] Respiratory Rate Blood Pressure Blood Pressure [Ri ght Arm] Pulse Oximetry 99 99 99 Oxygen Delivery Me thod 04/29/24 15:32 04/29/24 15:33 04/29/24 15:34 Temperature 98.9 F Pulse Rate 89 Pulse Rate [Pulse Oximeter] Respiratory Rate Blood Pressure 117/60 Blood Pressure [Ri ght Arm] Pulse Oximetry 99 Oxygen Delivery Me thod 04/29/24 15:39 04/29/24 15:44 04/29/24 15:47 Temperature 98.9 F Pulse Rate Pulse Rate [Pulse Oximeter] Respiratory Rate Blood Pressure Blood Pressure [Ri ght Arm] Pulse Oximetry 98 98 Oxygen Delivery Me thod 04/29/24 15:48 04/29/24 15:49 04/29/24 16:30 Temperature 98.5 F Pulse Rate 88 Pulse Rate [Pulse Oximeter] 89 Respiratory Rate 18 Blood Pressure 125/59 L Blood Pressure [Ri ght Arm] 116/70 Pulse Oximetry 98 97 Oxygen Delivery Me thod 04/29/24 19:58 04/29/24 23:27 04/30/24 04:43 Temperature 99.2 F 98.5 F 98.1 F Pulse Rate Pulse Rate [Pulse Oximeter] 100 87 84 Respiratory Rate 18 12 12 Blood Pressure Blood Pressure [Ri ght Arm] 138/85 122/75 141/81 H Pulse Oximetry 99 98 99 Oxygen Delivery Me thod Room Air Room Air Room Air 04/30/24 04:45 Temperature Pulse Rate Pulse Rate [Pulse Oximeter] 73 Respiratory Rate Blood Pressure Blood Pressure [Ri ght Arm] 114/74 Pulse Oximetry Oxygen Delivery Me thod OB - DS: Summary Hospital Course Hospital Course: Sherine is a 33 year old G 2 P 2 at 37.3 weeks gestation that was admitted to the Center on 04/28/24 for IOL for CHTN and GDMA2. She had an uncomplicated vaginal delivery. She delivered a viable male infant. She is now bottle feeding. She was going to pump but it was too painful for her and baby was loosing weight she she choose to switch to formula. She formula fed her last child. She states that she will resume pumping at home. Encouraged consult before discharge and after PRN. the patient has done well. Her pain is well controlled with current medications.? She has no new complaints.? Urinary output is adequate and she is voiding without difficulty.? Has a good appetite, is tolerating a general diet, is passing flatus, and has not had a bowel movement.? Has scant amount of rubra lochia.? She is ambulating well. Her partner is planning a vasectomy and she was encouraged to use condoms until the final testing after it is complete. She declines the 2hr GTT in the hospital and is agreeable to it at her 6wk PP visit. She will continue to monitor her blood pressures at home and report abnormal blood pressures. She will continue with her Labetalol 100mg BID. She is planning to discharge today however if baby needs to stay tonight due to blood sugar issues or other concerns she will stay and discharge tomorrow. Peripartum Data Infant delivery method: Vaginal Laceration description: Vaginal - 1st Degree Episiotomy description: None complications: none [place] Gender: Male Discharge Plan: Home Status at Discharge Functional status at discharge: independent ambulation Overall status at discharge: patient is progressing back to baseline Time Spent with Patient Time attestation: Total time spent providing and/or coordinating discharge services: Discharge Plan Discharge Disposition: Home, Self-Care Date of Admission: 04/28/24 15:54 Attending Provider on Discharge: Jerilyn Romero Consulting Providers: Minoo Arriaza Primary Care Provider: Radha Ribeiro Condition: Stable Anticipated Discharge Date/Time: 04/30/24 15:00 Discharge Medications: New docusate sodium 100 mg Capsule 100 mg PO DAILY Qty: 90 0RF Rx Instructions: Take 1-2 tablets daily as needed for constipation. ibuprofen 600 mg Tablet 600 mg PO Q6H PRNQty: 90 0RF Continued Classic 28 mg iron- 800 mcg tablet 1 tab PO QDAY famotidine [Acid Marketing Development Manager (famotidine)] 20 mg tablet 40 mg PO QDAY labetalol 100 mg tablet 100 mg PO BID Qty: 120 3RF Discontinued Humulin N NPH U-100 Insulin 100 unit/mL suspension 20 unit subcut .hs Qty: 30 2RF Rx Instructions: 20 units at bedtime aspirin 81 mg tablet,delayed release (DR/EC) 81 mg PO QDAY (DME) insulin syringe-needle U-100 [Sure Comfort Insulin Syringe] 1 mL 30 gauge x 5/16 syringe See Rx Instructions .ROUTE .MEDSUPPLY Qty: 100 3RF Rx Instructions: As directed alcohol swabs [Alcohol Pads] Pads, Medicated 1 pad topical DAILY Qty: 100 1RF Discharge Orders: Discharge Order (Routine); Ordered 04/30/24 Ordered By: Jerilyn Romero Patient Education: OB Vaginal/Bottle Feeding Additional Instructions: Discharge instructions were reviewed with the patient including signs and symptoms of infection and home going medications.? Lifting Restrictions: 20 pounds for 6? weeks? ?? Do not drive while taking narcotic pain meds.? Off Work or School for 6 weeks.? ?? Symptoms to report to doctor:? -Bleeding that saturates more than one pad per hour? -Passing clots larger than the size of a golf ball? -Pain not relieved by prescribed medication? -Fever above 100.4 degrees Fahrenheit? -A foul vaginal odor? -Difficulty in emotions, mood and functions? -Thoughts of hurting yourself and/or ? -Painful, reddened area in your breast? -Any drainage, redness or tenderness in your IV/epidural site? -Severe headache that doesn't improve after taking medications? -Changes in vision, including temporary loss of vision, blurred vision, and/or light sensitivity? -Upper abdominal pain (usually under ribs on the right side)? -Decrease in urination or painful, frequent urinating? -Chest pain? -Shortness of breath? -Tenderness or pain with redness and/swelling in the calf(s) of your leg? ?? 1. 1 week visit:?blood pressure check with a nurse if concerns.? 2. 2-week visit: discuss infant feeding/care concerns, review control options and screen for anxiety/depression.? 3. 6-week visit for an annual exam with 2 hour fasting glucose test.? ?? consultation services are available to all mothers and babies for the first year after delivery.? To make an appointment, please call [phone].? Activity Level: Activity as Tolerated Follow Up Appointments: [facility] [Provider Group] Forms: MyHealth Info Instructions
[2024-04-30 08:25] VITALS: BP 111/72; PULSE 70; RESP 16; TEMP 36.7; O2SAT 99
--- NOTE | 2024-04-30 13:02 | PM.ANPOST ---
Post Anesthesia Note Post Anesthesia Note Patient seen: Inpatient Respiratory Status: adequate Cardiovascular Status: adequate Mental Status: baseline Pain: adequate Temp: baseline Anesthetic awareness: N/A Complications: none Follow care: none
[2024-04-30] MEDS: ACETAMINOPHEN 500 MG TABLET 1000 MG PO (13:04)
[2024-04-30 13:33] VITALS: BP 110/70; PULSE 72; RESP 16; TEMP 36.7; O2SAT 99
[2024-04-30 18:07] LABS: Rapid Plasma Reagin (RPR) Non Reactive (Non Reactive)
== END 2024-04-30 15:00 | disposition home or self-care (01) | DRG 560 ==
PROVIDERS: Obstetrics & Gynecology; Admitting Provider Obstetrics & Gynecology; PCP Nurse Practitioner Family; Visit Provider Obstetrics & Gynecology
DX: O10.92 Unspecified pre-existing hypertension complicating childbirth (principal); O24.424 Gestational diabetes mellitus in childbirth, insulin controlled; O26.893 Other specified pregnancy related conditions, third trimester; Z67.11 Type A blood, Rh negative; O70.0 First degree perineal laceration during delivery; O99.214 Obesity complicating childbirth; E66.9 Obesity, unspecified; O62.2 Other uterine inertia; O99.334 Smoking (tobacco) complicating childbirth; F17.210 Nicotine dependence, cigarettes, uncomplicated; Z3A.37 37 weeks gestation of pregnancy; Z37.0 Single live birth
CPT/HCPCS: 01967; 36415; 59200; 82565; 82962; 84450; 84460; 84520; 85018; 85025; 85027; 85461; 86592; 86850; 86870; 86880; 86900; 86901; 88307; A9270; C1726; J2270; J2371; J2791; J2795; J7120

== ENCOUNTER 2024-09-09 13:06 | Outpatient (CLI) | payer BC, SELFPAY | END 2024-09-09 13:07 | disposition home or self-care (01) | PROVIDERS: PCP Nurse Practitioner Family; Visit Provider Nurse Practitioner Family | DX: L65.9 Nonscarring hair loss, unspecified (principal); E55.9 Vitamin D deficiency, unspecified; Z13.21 Encounter for screening for nutritional disorder | CPT/HCPCS: 82306; 82607; 82642; 82728; 83540; 84443; 85025 ==

== ENCOUNTER 2024-09-20 08:58 | Outpatient (CLI) | payer BC, SELFPAY | END 2024-09-20 08:59 | disposition home or self-care (01) | LOC: NFLDREF 09-23 23:20 | PROVIDERS: PCP Nurse Practitioner Family; Referring Provider Nurse Practitioner Family; Visit Provider Nurse Practitioner | DX: N30.01 Acute cystitis with hematuria (principal) | CPT/HCPCS: 87086 ==

== ENCOUNTER 2024-10-27 10:34 | Emergency (ER) | payer BC, SELFPAY ==
--- OUTSIDE RECORDS SUMMARY | 2024-10-27 10:37 | XMS_ITS | Clinical Summary ---
Author Organization [employer] Address [address] [place] [address] Care Team Providers Care Kaiwhakahaere Name Role Phone Kelsey Hargrove NP Primary Care Provider [phone] Allergies Active Allergy Reactions Criticality Noted Date Comments Amoxicillin-Pot Clavulanate *Unknown 11/17/19 15 Cefaclor Rash 11/16/2014 Medications omeprazole 20 mg tabletIndication s:Black stools Take 1 Tablet (20 mg) by mouth 2 times daily. 60 Tablet 05/28/2021 Active oxyCODONE (ROXICODONE) 5 mg immediate release tablet Take 5-10 mg by mouth every 4 hours if needed for Pain. Active sennosides-docus ate (Senokot-S) (8.6-50 mg) tablet Take 1 Tablet by mouth 2 times daily if needed for Constipatio n. Active Active Problems Problem Noted Date Diagnosed Date Calculus of gallbladder with chronic cholecystitis without obstruction 06/04/2021 Status post cholecystectomy 05/29/2021 GI bleed 05/29/2021 Choledocholithiasis 05/22/2021 Cholecystitis 05/22/2021 Leukocytosis 05/22/2021 Tobacco dependence 12/19/2014 Pilonidal cyst 11/16/2014 Immunizations Immunization Administration Dates Next Due DTP 09/06/1997, 5,08/31/1993,06/19/1993,11/28/18 93 HIB PRP-OMP (PedvaxHIB) 08/01/1994,08/31/1993,,1992 Hepatitis B (Peds) 08/31/1993,06/19/1993, 993 MMR 08/01/1994 MMRV 03/14/2005 Oral Polio Vaccine 09/06/1997,08/31/1993, 994,1992 Td (Age >=7 Years) 03/14/2005 Tdap 01/23/2015 Family History Medical History Relation Name Comments GI Disease Father ulcers Cancer Paternal Aunt 1 lung Stroke Paternal Aunt 2 Cancer Paternal Grandmother lung Relation Name Status Comments Father Alive Maternal Grandfather Alive Maternal Grandmother Alive Mother Alive Paternal Aunt 1 Paternal Aunt 2 Paternal Grandfather Alive Paternal Grandmother Social History Tobacco Use Types Packs/Day Years Used Date Smoking Tobacco: Every Day Cigarettes Smokeless Tobacco: Never Tobacco Cessation:Ready to Q uit: No; Counseling Given: Yes Comments:pt declined Alcohol Use Standard Drinks/Week Comments Yes 0 (1 standard drink = 0.6 oz pur e alcohol) rare PHQ-2 Answer Date Recorded PHQ-2 Score 0 10/29/2018 Social Connections Answer Date Recorded Frequency of Communication with Friends and Fami ly Not on file 05/25/2021 Financial Resource Strain Answer Date R ecorded Difficulty of Paying Living Expenses Not on file 05/25/2021 Difficulty of Paying Living Expenses Not on file 05/25/2021 Comments No Sex and Gender Information Value Date Recorded Sex Assigned at Not on file Legal Sex Female 4:22 PM CDT Gender Identity Not on file Sexual Orientation Not on file Occupation Industry Job Start Date Job End Date unemployed Not on file Not on file Not on file Obstetrics History Last Filed Vital Signs Vital Sign Reading Time Taken Comments Blood Pressure 114/58 05/31/2021 8:00 AM ROOM SERVICE RUNNER Pulse 77 05/31/2021 8:00 AM ROOM SERVICE RUNNER Temperature 36.9 C (98.4 F) 05/31/2021 8:00 AM ROOM SERVICE RUNNER Respiratory Rate 18 05/31/2021 8:00 AM ROOM SERVICE RUNNER Oxygen Saturation 99% 05/31/2021 8:00 AM ROOM SERVICE RUNNER Inhaled Oxygen Concentration - - Weight 97.5 kg (215 lb) 05/30/2021 9:55 AM ROOM SERVICE RUNNER Height 162.6 cm (5' 4) 05/30/2021 9:55 AM ROOM SERVICE RUNNER Body Mass Index 36.9 05/30/2021 9:55 AM ROOM SERVICE RUNNER Plan of Treatment Health Maintenance Due Date Last Done Comments HIV for age 15-65 09/08/2007 Hepatitis C screening for age 18-79 2010 Depression screening for age 12+ 10/30/2019 10/29/2018, 10/09/2017 BMI (ht and wt on same day) for age 18+ 05/29/2022 05/29/2021, 05/25/2021, 06/23/2018, Additional history exists COVID-19 vaccine series (2023- season) 2024 Influenza Vaccine (Season Ended) 2025 Tetanus booster 01/23/2025 01/23/2015, 03/14/2005 Pap test for age 21-65 09/29/2026 , 09/30/2023, 06/06/2020 Hepatitis B series for 19+ Completed 08/31, 06/19/1993, 1992 Tdap Completed 01/23/2015 Pneumococcal series for age 6-49 Aged Out No longer eligible based on patient's age to complete this topic Procedures Procedure Name Priority Date/Time Associated Diagnosis Comments ELECTION CLERK THIN PREP PAP SCREEN IMAGED Routine 09/30/2023 12:00 PM CDT from Last 3 Months or Most Recently Relevant to Health Maintenance Results * (ABNORMAL) ELECTION CLERK THIN PREP PAP SCREEN IMAGED (09/30/2023 12:00 PM CDT) Case Report Gynecologic Cytology Report Case: [id number] Authorizing Provider: Katharine Siegel NP Collected: 09/30/2023 1200 Ordering Location: [facility] Received: 10/01/2023 1700 First Screen: Trinity Chapin Pathologist: Zahida Lee MD Specimen: ELECTION CLERK ThinPrep Vial Screening, Cervical 10/14/2023 1:27 PM CDT [facility] LABORAT[facility]-C ENTRAL LABORATORY INTERPRETATION/ RESULT ATYPICAL SQUAMOUS CELLS OF UNDETERMINED SIGNIFICANCE (ASCUS)(A) (none) 10/14/2023 1:27 PM CDT [facility]TRAL LABORATORY at 1327 CDT SPECIMEN ADEQUACY Satisfactory for evaluation Endocervical component present 10/14/2023 1:27 PM CDT [facility] HPV REQUEST HPV and PAP 10/14/2023 1:27 PM CDT [facility] Date of LMP 08/01/2023 10/14/2023 1:27 PM CDT [facility] EN[facility] Last Pap Date 06/06/2020 10/14/2023 1:[address] [facility] Last Pap Result NIL 1:[address] [facility] Abnormal Pap or [place] Bx in last 5 years No 10/14/2023 1:[address] [facility] Menstrual Status 10/14/2023 1:[address] [facility] [place] Bx Done Today No 10/14/2023 1:[address] [facility] Additional Information 10/14/2023 1:27 PM CDT [facility] Comment: Interpreted at [facility], Central Laboratory - [address], [place] [address] Automated Review Successful 10/14/2023 1:[address] [facility] Comment:Specimen processed s uccessfully by automated applications engineer device, ThinPrep Imaging System, [employer] ANCILLARY TESTING ELECTION CLERK HPV Ordered, Please see separate report 10/14/2023 1:[address] [facility] Note The pap test is a screening technique, not a diagnostic procedure. It is used primarily to screen for squamous cancers and precursor lesions. Published studies have shown that it is subject to both false negative and false positive results. The pap test should not be used as the sole means to diagnose or exclude pre-malignant and malignant lesions. 10/14/2023 1:[address] [facility] Other (Cervical) 09/30/2023 12:00 PM CDT 10/01/2023 5:00 PM CDT Katharine Siegel NP PATHOLOGY/CYTOLOGY Final Result [facility]-CENTRAL LABORATORY [address] [place] [address], from Last 3 Months or Most Recently Relevant to Health Maintenance Insurance [facility] [address] [place] [id number] [place] [id number] [address] [address] [place] [address] Advance Directives * Full Code (Latest Code Status on File) Date Activated Date Inactivated Comments 05/29/2021 8:33 PM 05/31/2021 11:42 AM Question Answer Comments Code Status Discussion: Reviewed Preferences * Full Code Date Activated Date Inactivated Comments 05/22/2021 11:30 AM 05/23/2021 10:22 PM Question Answer Comments Code Status Discussion: Reviewed Preferences Care Teams Kaiwh[place]aere Relationship Specialty Start Date End Date Kelsey Hargrove NP [address] [place] [id number] PCP - General Family Practice 11/28/14
--- OUTSIDE RECORDS SUMMARY | 2024-10-27 10:38 | XMS_ITS | Clinical Summary ---
Author Organization [facility] Address [address] [place] [address] Care Team Providers Care Analysis Lead Name Role Phone Unavailable Primary Care Provider Unavailabl e Source Comments Patient records contain information from all sites at [facility]. For routine questions regarding patient records, call [phone] during business hours, M-F 8:00 AM - 5:00 PM Central Time. Record requests for emergency care only can be directed to [phone] at any time.[facility] Allergies Active Allergy Reactions Criticality Noted Date Comments Amoxicillin-Pot Clavulanate Rash 11/17/19 15 Cefaclor Rash 11/16/2014 Medications ijjxybd-Sw-[id number]- FA 27 mg iron- 1 mg tablet Take 1 tablet by mouth daily. Active labetaloL 100 mg tablet Take 100 mg by mouth every 12 (twelve) hours. Active Active Problems Problem Noted Date Diagnosed Date Preexisting Hypertension 12/24/2023 PreDiabetes 12/24/2023 Complication Obesity Body Mass Index 30 To 40 Pr egnancy 12/24/2023 Immunizations Immunization Administration Dates Next Due MMRV 03/14/2005 Td [...] Date Smoking Tobacco: Every Day Cigarettes 0.5 11.4 Started: 2013 Smokeless Tobacco: Never Tobacco Cessation:Ready to Q uit: Not Asked; Counseling Given: Not Answered Alcohol Use Standard Drinks/Week Comments Not Currently 0 (1 standard drink = 0.6 oz pur e alcohol) [facility] Utilities Answer Date Recorded In [...] your living situation today? 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 Gender Identity Female 12/18/2023 9:03 AM [...] 1992 Tobacco Cessation counseling 1992 Pneumococcal vaccine (0-49 years) (1 of 2 - PCV) 09/08/2011 Fasting Glucose for Diabetes Screening 05/26/2022 05/26/2021, 05/25/2021, 05/23/2021, Additional history exists COVID-19 Vaccine ( - season) 2024 Influenza Vaccine (#1) 2024 Depression Screening (Annual PHQ-2) 05/19/2024 Glucose Monitoring for Gestational Diabetes (6 weeks ) 09/20/2024 Office Visit for Blood Pressure Check / Re-check 12/23/2024 12/24/2023 DTaP,Tdap,and Td Vaccines (7 - Td or Tdap) 01/23/2025 01/23/2015, 03/14/2005, 09/06/1997, Additional history exists Cervical/Vaginal Cancer Screening 09/29/2026 09/30/2023 Hepatitis B Vaccines Completed 08/31/1993, 06/19/1993, 1992 IPV Vaccines Completed 09/06/1997, 08/17, 06/19/1993, Additional history exists HPV Vaccines Aged Out No longer eligi ble based on patient's age to complete this topic Insurance [facility]
[2024-10-27 10:47] VITALS: BP 144/92; PULSE 87; RESP 18; TEMP 36.3; O2SAT 98; BMI 40.4
--- NOTE | 2024-10-27 11:18 | ED_ITS ---
HPI - General Adult General Chief complaint: Headache/Migraine Stated complaint: Elevated BP and vison changes Time Seen by Provider: 10/27/24 10:55 History of Present Illness HPI narrative: This 34-year-old female went to urgent care this morning because of a mild headache and some blurry vision in her right eye. She states that she gets headaches on rare occasions. This headache started yesterday and seemed to get better after taking Tylenol. She had more blurred vision this morning and a very mild headache. She went to urgent care and was told to come here immediately. She does not have any neurologic deficit. She did have some mildly elevated blood pressure during and was told to watch this. Today her blood pressure is slightly elevated. Related Data Home Medications ?Medication ?Instructions ?Recorded ?Confirmed No Known Home Medications 10/27/2410/17 Allergies Allergy/AdvReac Type Severity Reaction Status Date / Time amoxicillin Allergy Mild Rash Verified 10/27/24 10:47 Review of Systems Status of ROS: Reports: 10 or more systems reviewed and unremarkable except as noted in History and below Narrative: Constitutional: No fevers, no weight gain or loss. Eyes: No discharge. Blurred vision in the right eye as described above. HENT: No congestion, no sore throat, no ear pain. Cardiovascular: No chest pain, no palpitations. Respiratory: No shortness of breath, no wheezes, no cough. Gastrointestinal: No abdominal pain, no vomiting, no diarrhea. Genitourinary: No dysuria, no hematuria. Musculoskeletal: Normal range of motion. Skin: No rashes, no pruritis. Neurological: No dizziness, weakness, sensory change, speech change. Endo/Heme/Allergies: No bruising or bleeding. No polydipsia. Pysch: no suicidality, no anxiety, no insomnia. All other systems reviewed and are negative. [facility] Medical History (Updated 10/27/24 @ 11:22 by Reinaldo Lugo MD) Hair loss ?L65.9 - Nonscarring hair loss, unspecified (ICD-10) Proteinuria affecting ?O12.10 - Gestational proteinuria, unspecified trimester (ICD-10) Prediabetes ?R73.03 - Prediabetes (ICD-10) White classification A1 gestational diabetes mellitus (GDM) (08/2020) ?O24.410 - Gestational diabetes mellitus in , diet controlled (ICD- 10) Normal spontaneous vaginal delivery (04/29/24) ?O80 - Encounter for full-term uncomplicated delivery (ICD-10) Gestational hypertension (11/2020) ?O13.9 - Gestational [-induced] hypertension without significant proteinuria, unspecified trimester (ICD-10) Surgical History History of tonsillectomy ?Z90.89 - Acquired absence of other organs (ICD-10) History of cholecystectomy ?Z90.49 - Acquired absence of other specified parts of digestive tract (ICD- 10) Social History What is your current living situation?: I presently have a place to live Problems where you live: no known problems In the past 12 months, utilities in danger of being shut off: no In past 12 months, lack of transportation kept you from medical appts, meetings, work, or getting things needed for daily living: no In the past 12 mos, have been you worried that your food would run out before you had money to buy more?: never true In the past 12 mos, the food you bought just didn't last and you didn't have money to buy more?: never true Smoking Status: Current every day smoker How often does anyone, including family, friends and others, physically hurt you : never How often does anyone, including family, friends and others, insult or talk down to you: never How often does anyone, including family, friends and others, threaten you with harm: never How often does anyone, including family, friends and others, scream or curse at you: never Exam Narrative: Exam Narrative: Constitutional: Well-developed, well-nourished, no acute distress. HEENT: Normocephalic, atraumatic. Funduscopic exam is normal bilaterally. Neck: Normal range of motion. Nontender. Supple. Heart: Regular. No murmurs. Normal rate. Intact distal pulses. Lungs: Clear to auscultation. No chest discomfort. No wheezes, rhonchi, or rales. Abdomen: Normal bowel sounds. Nontender. No rebound tenderness. Genitalia: Deferred. Back: No midline tenderness. Normal range of motion. Extremities: Normal range of motion. No injury. Skin: Intact. No rash. Warm. No erythema or pallor. Neurologic: No altered sensation. No weakness. Alert and oriented. No facial asymmetry. Tongue is midline. Xfnunj-ja-tthp is normal. No pronator drift. 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 Able to raise each leg from the bed. Psychiatric: No suicidality. No anxiety or depression. No insomnia. Nursing notes and vitals signs are reviewed. Const: Vital Signs, click to edit/add: Vital Signs - 24 hr 10/27/24 10:47 Temperature 97.4 F L Pulse Rate [Pulse Oximeter] 87 Respiratory Rate 18 Blood Pressure [Ri t Upper Arm] 144/92 H Pulse Oximetry 98 Oxygen Delivery Me thod Room Air Course Vital Signs Vital signs: Initial Vital Signs Temperature 97.4 F L 10/27/24 10:47 Temperature Source Temporal Artery Scan 10/27/24 10:47 Pulse Rate 87 10/27/24 10:47 Respiratory Rate 18 10/27/24 10:47 Blood Pressure 144/92 H 10/27/24 10:47 Blood Pressure Mean 109 H 10/27/24 10:47 Blood Pressure Position Sitting 10/27/24 10:47 Pulse Oximetry 98 10/27/24 10:47 Oxygen Delivery Method Room Air 10/27/24 10:47 Vital Signs Temperature 97.4 F L 10/27/24 10:47 Pulse Rate 87 10/27/24 10:47 Respiratory Rate 18 10/27/24 10:47 Blood Pressure 144/92 H 10/27/24 10:47 Pulse Oximetry 98 10/27/24 10:47 Oxygen Delivery Method Room Air 10/27/24 10:47 Temperature 97.4 F L 10/27/24 10:47 Pulse Rate 87 10/27/24 10:47 Respiratory Rate 18 10/27/24 10:47 Blood Pressure 144/92 H 10/27/24 10:47 Pulse Oximetry 98 10/27/24 10:47 Oxygen Delivery Method Room Air 10/27/24 10:47 Medical Decision Making [facility] Narrative Medical decision making narrative: This patient comes in with symptoms typical of a migraine headache. It has an additional component with some blurred vision in her right eye. Her vital signs are normal and she has a normal neurologic exam. She states that she is currently not having any significant headache. Her vision testing does show some decreased visual acuity in her right eye. Her exam is completely normal. I did discuss lab and imaging options with the patient and these were declined in a process of shared decision making. I also did discuss matters related to migraine headaches and hypertension and the criteria for establishing a diagnosis of hypertension. She is okay to be discharged home and his reassured with this encounter here today. Discharge Plan Discharge Clinical Impression: Migraine Patient Disposition: Home, Self-Care Condition: Stable Additional Instructions: Use rspr-kce-[id number] medicines as needed and directed. Follow up with MD or return if symptoms are worsening. Prescriptions: No Action No Known Home Medications Follow Up/Referrals: Radha Ribeiro APRN, CEMENT FINISHER HELPER [Primary Care Provider, Family Practice] Stand Alone Forms: [employer] Info Instructions
== END 2024-10-27 11:54 | disposition home or self-care (01) ==
LOC: ED 11:39
PROVIDERS: Emergency Provider Emergency Medicine Emergency Medical Services; PCP Nurse Practitioner Family
DX: G43.909 Migraine, unspecified, not intractable, without status migrainosus (principal)
CPT/HCPCS: 99282; 99283; 99284